=== PATIENT | female | born 1980 | race African-American/Black ===

== ENCOUNTER 2019-11-30 10:08 | Emergency (ER) | payer OTHER, SELFPAY ==
--- NOTE | 2019-11-30 10:21 | ED.DENTAL ---
HPI - Dental/Oral General Chief complaint: Dental/Oral Stated complaint: Tooth Ache Time Seen by Provider: 11/30/19 10:22 Source: patient and RN notes reviewed Mode of arrival: ambulatory Limitations: no limitations History of Present Illness HPI Narrative: 39 year old female who presents to [facility] with complaints of dental pain to the lower right molar#30 for about 6 week duration. Patient states she is awaiting up coming dental appointment at [facility] next week. Patient reports that she has been using ora-gel, mouthwash and also peroxide/water rinses and salt water. Patient states that she has been taking Tylenol and Ibuprofen alternating and is on prescription pain medication for her arthritis and fibromyalgia.Patient states that she has been applying ice to her face at intervals, denies any difficulty with her breathing or any difficulty with swallowing, no Vasquez angina noted. MD Complaint: tooth pain Location: Tooth # (30) Onset (ago): week(s) (6) Duration: constant Severity: severe Severity scale (1-10): 8 Relieving factors: NSAIDs and prescription analgesics Exacerbating factors: chewing and cold Context: history of dental caries Associated symptoms: gum swelling and other (dental pain) Treatment prior to arrival: topical analgesic and oral analgesic Related Data Home Medications Medication Instructions Recorded Confirmed atorvastatin 40 mg DAILY 11/30/19 11/30/19 dulaglutide [Trulicity] 0.75 mg SUBCUT WEEKLY 11/30/19 11/30/19 glipizide 10 mg PO DAILY 11/30/19 11/30/19 insulin glargine [Lantus Solostar 66 unit SUBCUT HS 11/30/19 11/30/19 U-100 Insulin] insulin lispro [Humalog KwikPen 6 unit SUBCUT TIDWMEAL 11/30/19 11/30/19 Insulin] metoprolol succinate 100 mg PO DAILY 11/30/19 11/30/19 omeprazole 20 mg DAILY 11/30/19 11/30/19 oxycodone-acetaminophen 1 tablet Q6-8H 11/30/19 11/30/19 promethazine 25 mg Q4-6H PRN 11/30/19 11/30/19 Allergies Allergy/AdvReac Type Severity Reaction Status Date / Time azithromycin Allergy Mild Hives Verified 11/30/19 11:45 codeine Allergy Mild Swelling Verified 11/30/19 11:45 of Lip/Tongue/Throat levofloxacin Allergy Mild rash/itchin Unverified 05/12/18 15:48 g HYDROCODONE BIT Allergy Mild Hives Uncoded 11/30/19 11:45 HYDROMORPHONE HCL Allergy Mild Hives Uncoded 11/30/19 11:45 MEPERIDINE HCL Allergy Mild Hives Uncoded 11/30/19 11:45 Review of Systems Review of Systems: Narrative: CONSTITUTIONAL: Denies fever, chills, or sweats. EYES: Denies visual changes, redness, or discharge. ENT: Denies rhinorrhea, congestion, sore throat, or otalgia, positive for dental pain to her #30 tooth, denies any difficulty with her swallowing CARDIOVASCULAR: Denies chest pain, palpitations, or edema. RESPIRATORY: Denies cough or dyspnea denies any shortness of breath. GASTROINTESTINAL: Denies abdominal pain, nausea, vomiting, or diarrhea. GENITOURINARY: Denies dysuria or hematuria. SKIN: Denies rash or itching. MUSCULOSKELETAL: Denies back pain, joint pain, or myalgia. NEUROLOGIC: Denies headache, numbness, or weakness. PSYCHIATRIC: Denies anxiety or depression. All systems reviewed & are unremarkable except as noted in HPI and below PMFSH Past Medical History Medical History (Updated 12/01/19 @ 00:00 by Luis Antonio Daida) Anxiety and depression Arthritis Diabetes Fatty liver Fibromyalgia Hyperlipidemia Hypertension Left hand fracture Pneumonia Pyloric ulcer associated with Helicobacter pylori Surgical History Surgical History (Updated 11/30/19 @ 11:24 by Carmelita Ross NP) History of cervical spinal surgery Family History Family History (Updated 11/30/19 @ 11:23 by Carmelita Ross NP) Father Hypertension Mother Diabetes mellitus Social History Social History (Updated 11/30/19 @ 11:20 by Carmelita Ross NP) Smoking packs per day: 0.5 Smoking cigarettes per day: 10.0 Years smoked: 20 Smoking pack-years: 10.00 Substance use t
[2019-11-30 10:25] VITALS: BP 136/84; PULSE 88; RESP 16; TEMP 36.4; O2SAT 100
== END 2019-11-30 10:54 | disposition home or self-care (01) ==
PROVIDERS: Emergency Provider Registered Nurse; PCP Family Medicine
DX: K02.9 Dental caries, unspecified (principal); K08.89 Other specified disorders of teeth and supporting structures; F17.210 Nicotine dependence, cigarettes, uncomplicated; M19.90 Unspecified osteoarthritis, unspecified site; E11.9 Type 2 diabetes mellitus without complications; M79.7 Fibromyalgia; E78.5 Hyperlipidemia, unspecified; I10 Essential (primary) hypertension
CPT/HCPCS: 99213; G0463

== ENCOUNTER 2020-09-20 16:01 | Emergency (ER) | payer OTHER, SELFPAY ==
--- NOTE | ~2020-09-20 | XR_ITS ---
EXAMINATION: XR chest 1V portable EXAM DATE: 09/20/2020 18:38 INDICATION: Coughing, chest burning x 2 days. No other hx of heart/lung. TECHNIQUE: Portable AP frontal chest x-ray was obtained. There is no prior study for comparison. 12/2017 FINDINGS: The lungs are clear. There are no pleural effusions. The cardiomediastinal silhouette is within normal limits. There is no pneumothorax suspected. The bones and soft tissues are unremarkab le. IMPRESSION: No acute cardiopulmonary findings. Reviewed, dictated and finalized at location A.
--- NOTE | ~2020-09-20 | CT_ITS ---
EXAMINATION: CT abdomen pelvis w con EXAM DATE: 09/20/2020 19:10 INDICATION: Mid abdominal pain . TECHNIQUE: Spiral CT of the abdomen and pelvis was performed following intravenous injection of 100 m L Omnipaque 350. Axial, coronal and sagittal images of the abdomen and pelvis were reviewed. The do se-length product (DLP) for this examination was 374.26 mGy-cm. The exposure was tailored according to patient size (auto mA exposure control), and iterative reconstruction (ASIR) was used as additiona l dose reduction technique. Comparison is made to prior examination from 01/31/2017. FINDINGS: Small amount of faint right basilar groundglass airspace disease, nonspecific pneumonitis b ut given prevalence of COVID 19, recommend testing. This would certainly be below threshold for detec tion on x-ray. The liver, spleen, adrenal glands and pancreas are unremarkable. Gallbladder is unrem arkable. No biliary obstruction. Portal and splenic veins are patent. Kidneys enhance symmetricall y. There is no hydronephrosis. The uterus and ovaries are unremarkable, no adnexal mass. The blad kyra is unremarkable. There is no retroperitoneal or pelvic lymphadenopathy. The appendix is normal. The stomach and small bowel are unremarkable. There is expected amount of c olonic stool. No free intraperitoneal gas. The heart is normal in size. There are no pericardial or pleural effusions. The lung bases are unremarkable. There are no osteoblastic or osteolytic les ions identified. IMPRESSION: 1. Small amount right basilar pneumonitis; recommend testing for COVID. 2. No acute intra-abdominal findings. Reviewed, dictated and finalized at location A.
--- NOTE | 2020-09-20 16:03 | ECG_ITS ---
Measurements Intervals [place] Rate: 92 P: 64 VA: 146 QRS: 28 QRSD: 77 T: 61 QT: 360 QTc: 447 Interpretive Statements SINUS RHYTHM POSSIBLE LEFT ATRIAL ENLARGEMENT BORDERLINE ECG Electronically Signed On 09-20-2020 16:27:32 CDT by Ronald Little D.O.
[2020-09-20 16:36] LABS: Basophils Percent Auto 0.3 % (0.2-1.2); Eosinophils Percent Auto 0.2 % (0-4.4); Hematocrit 42.7 % (37.0-47.0); Immature Granulocyte Absolute 0.02 K/mm3 (0.00-0.031); Immature Granulocyte Percent A 0.3 % (0-0.5); Lymphocytes Percent Auto 7.5 % (18.3-44.2); Mean Corpuscular HGB Conc 32.8 g/dl (32-36); Mean Corpuscular Hemoglobin 27.1 pg (26-34); Mean Corpuscular Volume 82.6 fl (80-100); Mean Platelet Volume 11.3 fl (7.4-10.4); Monocytes Absolute Auto 0.2 K/mm3 (0.1-0.6); Monocytes Percent Auto 3.3 % (2.6-8.5); Neutrophils Absolute Auto 5.9 K/mm3 (1.3-6.7); Neutrophils Percent Auto 88.4 % (45.5-73.1); Platelet Count Result 230 k/mm3 (150-375); Red Blood Count 5.17 M/mm3 (4.2-5.4); Red Cell Distribution Width 13.2 % (11.5-14.5); White Blood Count 6.7 K/mm3 (4.5-10.0)
[2020-09-20 16:47] LABS: Alanine Aminotransferase 37 U/L (4-35); Albumin Level 4.8 g/dL (3.5-5.1); Alkaline Phosphatase 79 U/L (38-126); Anion Gap 12 mmol/L (8-16); Aspartate Amino Transferase 31 U/L (14-36); Bilirubin,Total 0.7 mg/dL (0.2-1.3); Blood Urea Nitrogen 6 mg/dL (7-17); Calcium 9.8 mg/dL (8.4-10.2); Carbon Dioxide 22 mmol/L (22-30); Chloride 103 mmol/L (98-107); Estimated Glomerular Filt Rate > 60; Glucose 162 mg/dL (65-110); Lipase 83 U/L (23-300); Potassium 3.5 mmol/L (3.4-5.0); Sodium 137 mmol/L (137-145)
[2020-09-20 17:31] VITALS: BP 176/89; PULSE 77; RESP 16; O2SAT 100
--- NOTE | 2020-09-20 17:38 | ED.GENADULT ---
HPI - General Adult General Chief complaint: Nausea/Vomiting/Diarrhea Stated complaint: N/V Time Seen by Provider: 09/20/20 17:37 Source: patient and RN notes reviewed Limitations: no limitations History of Present Illness HPI narrative: Patient is 40 years old -[place]i female presents with cough and of yellow sputum started yesterday, today patient started having vomiting at least 7 episodes so far associated with nausea, fever and chills. Patient lives alone, denies exposure to anybody having similar symptoms. 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 Patient is fully vaccinated for COVID-19. History of hypertension, diabetes, smoking. Patient denies drinking alcohol or marijuana. Related Data Home Medications Medication Instructions Recorded Confirmed atorvastatin 40 mg DAILY 11/30/19 11/30/19 dulaglutide [Trulicity] 0.75 mg SUBCUT WEEKLY 11/30/19 11/30/19 glipizide 10 mg PO DAILY 11/30/19 11/30/19 insulin glargine [Lantus Solostar 66 unit SUBCUT HS 11/30/19 11/30/19 U-100 Insulin] insulin lispro [Humalog KwikPen 6 unit SUBCUT TIDWMEAL 11/30/19 11/30/19 Insulin] metoprolol succinate 100 mg PO DAILY 11/30/19 11/30/19 omeprazole 20 mg DAILY 11/30/19 11/30/19 oxycodone-acetaminophen 1 tablet Q6-8H 11/30/19 11/30/19 promethazine 25 mg Q4-6H PRN 11/30/19 11/30/19 Allergies Allergy/AdvReac Type Severity Reaction Status Date / Time azithromycin Allergy Mild Hives Verified 09/20/20 18:01 codeine Allergy Mild Swelling Verified 09/20/20 18:01 of Lip/Tongue/Throat levofloxacin Allergy Mild rash/itchin Verified 09/20/20 18:01 g HYDROCODONE BIT Allergy Mild Hives Uncoded 11/30/19 11:45 HYDROMORPHONE HCL Allergy Mild Hives Uncoded 11/30/19 11:45 MEPERIDINE HCL Allergy Mild Hives Uncoded 11/30/19 11:45 Review of Systems Review of Systems: Narrative: CONSTITUTIONAL: Denies fever, chills, or sweats. EYES: Denies visual changes, redness, or discharge. ENT: Denies rhinorrhea, congestion, sore throat, or otalgia. CARDIOVASCULAR: Denies chest pain, palpitations, or edema. RESPIRATORY: Denies cough or dyspnea. GASTROINTESTINAL: Denies abdominal pain, nausea, vomiting, or diarrhea. GENITOURINARY: Denies dysuria or hematuria. SKIN: Denies rash or itching. MUSCULOSKELETAL: Denies back pain, joint pain, or myalgia. NEUROLOGIC: Denies headache, numbness, or weakness. PSYCHIATRIC: Denies anxiety or depression. PMFSH Past Medical History Medical History Anxiety and depression Arthritis Diabetes Fatty liver Fibromyalgia Hyperlipidemia Hypertension Left hand fracture Pneumonia Pyloric ulcer associated with Helicobacter pylori Surgical History Surgical History History of cervical spinal surgery Family History Family History Father Hypertension Mother Diabetes mellitus Social History Social History Smoking packs per day: 0.5 Smoking cigarettes per day: 10.0 Years smoked: 20 Smoking pack-years: 10.00 Substance use type: opiates and prescription drug Gender identity (if verbalized by the patient): Female Exam Narrative: Exam Narrative: General appearance: Well-developed, well-nourished Skin: Normal color Head: Normocephalic, nontraumatic Eyes: Clear conjunctiva ENT: Oropharynx normal, ears normal, nose normal Neck: Supple, nontender Chest and respiratory: Airway patent, no respiratory distress, no accessory muscle use Heart: Regular rate/rhythm Abdomen: Soft, diffuse mid abdominal tenderness, no organomegaly, quiet bowel sounds Vascular: Normal peripheral pulses, normal capillary refill. Musculoskeletal: Normal range of motion, nontender back Neurologic: Alert and oriented ?3, CANVAS BASTER JUMPBASTING is normal as tested, no gross motor deficit
[2020-09-20] MEDS: MORPHINE SULFATE (*CRX) 4 MG/ML INJ IV PUSH (18:07)
[2020-09-20] MEDS: ONDANSETRON INJ 4 MG/2 ML VIAL IV PUSH ×2 (18:07→21:17)
[2020-09-20] MEDS: SODIUM CHLORIDE 0.9% IV 1,000 ML 999 ML IV CONT (18:08)
[2020-09-20 19:11] LABS: Add Urine Microscopic? YES; Appearance Urine Clear (Clear); Bilirubin Urine Negative (Negative); Blood Urine Negative (Negative); Color Urine Yellow (Yellow); Glucose Urine UA 1+ mg/dL (Negative); Ketones Urine Trace mg/dL (Negative); Leukocyte Esterase Ur Negative LEU/UL (Negative); Mucus Urine Heavy /lpf; Nitrate Urine Negative (Negative); Protein Urine 2+ mg/dL (Negative); RBC Urine 0-2 /hpf (0-2); Specific Grav Ur 1.012 (1.001-1.035); Squamous Epithelial Cell Urine Few /hpf (Few); Urobilinogen Urine Negative mg/dL (<2.0); WBC Urine 0-3 /hpf
--- NOTE | 2020-09-20 19:14 | PC.NURSE ---
assumed care of pt a this time.
[2020-09-20 20:25] VITALS: BP 178/88; PULSE 78; RESP 18; O2SAT 100
[2020-09-20 20:52] LABS: Alveolar/Arterial O2 Gradient 31.3 mmHg; Base Excess ABG 1.4 mEq/l (+/-2.0); Device ROOM AIR; Fractional Inspired Oxygen 21 %; HCO3 ABG 24.4 mEq/l (22.0-26.0); Oxygen Content ABG 20.1 %vol (16.0-22.0); Oxygen Saturation ABG 96.4 % (95.0-100.0); PCO2 ABG 33.7 mmHg (35.0-45.0); PO2 ABG 78.1 mmHg (80.0-100.0); PO2 FiO2 Ratio Arterial Blood 3.72 %; Site Drawn RIGHT BRACHIAL; pH ABG 7.477 (7.350-7.450)
[2020-09-20 21:36] VITALS: BP 175/97; PULSE 80; RESP 18; O2SAT 100
[2020-09-20] MEDS: AMOXICILLIN/CLAVULANATE K 875-125 MG TAB 1 TABLET PO (21:36)
[2020-09-22 15:38] LABS: SARS-CoV-2 RNA PCR Negative
== END 2020-09-20 21:38 | disposition home or self-care (01) ==
PROVIDERS: Emergency Provider Emergency Medicine; PCP Family Medicine
DX: J18.9 Pneumonia, unspecified organism (principal); R11.2 Nausea with vomiting, unspecified; Z20.822 Contact with and (suspected) exposure to COVID-19; M19.90 Unspecified osteoarthritis, unspecified site; E11.9 Type 2 diabetes mellitus without complications; M79.7 Fibromyalgia; E78.5 Hyperlipidemia, unspecified; I10 Essential (primary) hypertension; Z87.01 Personal history of pneumonia (recurrent); F17.210 Nicotine dependence, cigarettes, uncomplicated; Z79.4 Long term (current) use of insulin; Z79.899 Other long term (current) drug therapy
CPT/HCPCS: 36415; 36600; 71045; 74177; 80053; 81001; 81025; 82805; 83690; 85025; 93005; 96361; 96374; 96375; 96376; 99284; A9270; C9803; J2270; J2405; J7030; Q9967; U0003; U0005

== ENCOUNTER 2020-09-23 17:25 | Inpatient (IN) | payer BC, SELFPAY ==
[2020-09-23] VITALS (11 sets, daily range): BP systolic 95–138; BP diastolic 62–84; PULSE 90–118; RESP 17–22; TEMP 36.4–37.1; O2SAT 100; BMI 26.2
--- NOTE | ~2020-09-23 | CT_ITS ---
EXAMINATION: CTA chest PE protocol DATE: 09/23/2020 19:20 INDICATION: Shortness of breath TECHNIQUE: Computed tomography angiography (CTA) of the chest was performed with 100 mL Omnipaque-350 intravenous contrast timed to evaluate the pulmonary arteries. Coronal maximum intensity projection 3D-reconstructions were created by the technologist. The dose-length product (DLP) was 315.37 mGy-cm. Automated exposure control and iterative reconstruction technique were employed. COMPARISON: None. FINDINGS: The pulmonary arteries are well-opacified. No pulmonary embolism is identified. There is mi ld atelectasis. No pleural effusion or pneumothorax is identified. No pathologically enlarged thoraci c lymph nodes are identified. The heart size is normal. There is mild thoracic spondylosis. IMPRESSION: 1. No pulmonary embolism or acute cardiopulmonary abnormality. Reviewed, dictated and finalized at location A.
--- NOTE | ~2020-09-23 | XR_ITS ---
EXAMINATION: XR chest 1V portable INDICATION: Cough and shortness of breath TECHNIQUE: Portable AP chest at 1743 hours COMPARISON: 09/20/2020 FINDINGS: Patchy opacities have developed in the lung bases. There is no pleural effusion or pneumoth orax. The cardiomediastinal silhouette is normal. The visualized osseous structures are unremarkable. IMPRESSION: 1. Bibasilar airspace opacities, consistent with atelectasis versus pneumonia. Reviewed, dictated and finalized at location A.
--- NOTE | ~2020-09-23 | US_ITS ---
EXAMINATION: US abdomen limited EXAM DATE: 09/25/2020 14:34 INDICATION: Elevated liver function tests. TECHNIQUE: Multiple grayscale and Doppler images of the abdomen right upper quadrant were obtained (b y a technologist who performed the scan) and subsequently reviewed. There is no prior study for ramirez thomas. FINDINGS: The pancreatic head and body are normal in appearance. The pancreatic tail is not visualized. Mildl y echogenic liver parenchyma, hepatic steatosis. There are no focal liver lesions identified. Ther e is no evidence of intrahepatic biliary duct dilation. Portal venous flow was seen in the hepatoped al, normal direction and has normal Doppler waveform. No right-sided hydronephrosis. Common bile duct measures 5 mm, which is normal. The gallbladder wall is normal in thickness, with ex pected amount of distention. No sonographic evidence of pericholecystic fluid. There is no cholelit hiases. Technologist performing exam reports patient did not demonstrate sonographic Carmichael's sign. Please note that this sign is less reliable in patients who have received pain medication. IMPRESSION: 1. Mild hepatic steatosis. Reviewed, dictated and finalized at location B. IMPRESSION: 1. Mild hepatic steatosis.
--- NOTE | 2020-09-23 17:29 | ECG_ITS ---
Measurements Intervals [place] Rate: 111 P: 82 AK: 120 QRS: 74 QRSD: 86 T: 47 QT: 357 QTc: 487 Interpretive Statements SINUS TACHYCARDIA RIGHT ATRIAL ENLARGEMENT BASELINE ARTIFACT- I, II, III, AVR, AVL, AVF, V1-V6 ABNORMAL ECG Electronically Signed On 09-24-2020 13:39:58 CDT by Ronald Little D.O.
--- NOTE | 2020-09-23 17:52 | ED.SOB ---
HPI - SOB/Dyspnea General Chief Complaint: Shortness of Breath/Dyspnea Stated Complaint: DIFFICULTY BREATHING Time Seen by Provider: 09/23/20 17:47 Source: RN notes reviewed History of Present Illness HPI Narrative: Patient presents to emergency department from home via EMS for shortness of breath. Patient states she was seen here 3 days ago and diagnosed with pneumonia started on antibiotics at that time with a Covid test was not of the results she states she is have aggressive shortness of breath at that time as well as a cough this been nonproductive she notes a subjective fever as well as nausea she denies any chest pain abdominal pain or diarrhea. States that she continues to have nausea vomiting is unable to keep anything down for the past 3 days even with antiemetics Related Data Home Medications Medication Instructions Recorded Confirmed atorvastatin 40 mg DAILY 11/30/19 11/30/19 dulaglutide [Trulicity] 0.75 mg SUBCUT WEEKLY 11/30/19 11/30/19 glipizide 10 mg PO DAILY 11/30/19 11/30/19 insulin glargine [Lantus Solostar 66 unit SUBCUT HS 11/30/19 11/30/19 U-100 Insulin] insulin lispro [Humalog KwikPen 6 unit SUBCUT TIDWMEAL 11/30/19 11/30/19 Insulin] metoprolol succinate 100 mg PO DAILY 11/30/19 11/30/19 omeprazole 20 mg DAILY 11/30/19 11/30/19 oxycodone-acetaminophen 1 tablet Q6-8H 11/30/19 11/30/19 promethazine 25 mg Q4-6H PRN 11/30/19 11/30/19 Allergies Allergy/AdvReac Type Severity Reaction Status Date / Time azithromycin Allergy Mild Hives Verified 09/20/20 18:01 codeine Allergy Mild Swelling Verified 09/20/20 18:01 of Lip/Tongue/Throat levofloxacin Allergy Mild rash/itchin Verified 09/20/20 18:01 g HYDROCODONE BIT Allergy Mild Hives Uncoded 11/30/19 11:45 HYDROMORPHONE HCL Allergy Mild Hives Uncoded 11/30/19 11:45 MEPERIDINE HCL Allergy Mild Hives Uncoded 11/30/19 11:45 Review of Systems Review of Systems: Gen.: Reports subjective fever Eyes: Denies eye pain or visual change ENT: Denies congestion Respiratory: See HPI CV: Denies chest pain or palpitations GI: Denies abdominal pain. Reports nausea vomiting Musculoskeletal: Denies back pain or muscle pain Neuro: Denies numbness, tingling, weakness or focal weakness Skin: Denies rash Except as documented, all other systems reviewed and negative [facility] Past Medical History Medical History Anxiety and depression Arthritis Diabetes Fatty liver Fibromyalgia Hyperlipidemia Hypertension Left hand fracture Pneumonia Pyloric ulcer associated with Helicobacter pylori Surgical History Surgical History History of cervical spinal surgery Family History Family History Father Hypertension Mother Diabetes mellitus Social History Social History Smoking packs per day: 0.5 Smoking cigarettes per day: 10.0 Years smoked: 20 Smoking pack-years: 10.00 Substance use type: opiates and prescription drug Gender identity (if verbalized by the patient): Female Exam Narrative: APPEARANCE: Mild respiratory distress, nontoxic, resting in bed HEENT: Normocephalic, atraumatic OMM RESPIRATORY: Mild respiratory stress wheezing thought the bilateral lung rosenbaum with decreased breath sounds in the bases CARDIOVASCULAR: Tachycardic and regular without murmurs rubs or gallops. ABDOMINAL: Soft, nontender, nondistended, no rebound or guarding MUSCULOSKELETAl: Moves all extremities. No clubbing, cyanosis or edema. Bilateral calves soft and nontender NEURO: Awake and alert. Following commands, speech normal, no focal deficits SKIN:: Warm, dry. Normal Color PSYCHIATRIC: Normal affect/mood, Course Course Emergency Course: Reviewed previous records reviewed CT scan as well as Covid swab that was resulted as negative Patient continues t
[2020-09-23] MEDS: IPRATROPIUM BR 0.02% INH SOLN 0.5 MG/2.5 ML VIAL INHALATION ×2 (17:59→20:36)
[2020-09-23] MEDS: ALBUTEROL SULFATE NEB 2.5 MG/0.5 ML INH 5 MG INHALATION ×2 (17:59→20:36)
[2020-09-23] MEDS: methylPREDNISolone SOD SUCC 125 MG VIAL IV PUSH (18:17)
[2020-09-23] MEDS: SODIUM CHLORIDE 0.9% IV 1,000 ML 999 ML IV CONT ×2 (18:18→19:02)
[2020-09-23 18:33] LABS: Basophils Percent Auto 0.7 % (0.2-1.2); Eosinophils Absolute Auto 0.1 K/mm3 (0-0.3); Hematocrit 49.9 % (37.0-47.0); Hemoglobin 16.3 g/dL (12.0-15.0); Immature Granulocyte Absolute 0.01 K/mm3 (0.00-0.031); Immature Granulocyte Percent A 0.2 % (0-0.5); Lymphocytes Absolute Auto 2.53 K/mm3 (0.9-3.2); Lymphocytes Percent Auto 56.9 % (18.3-44.2); Mean Corpuscular HGB Conc 32.7 g/dl (32-36); Mean Corpuscular Hemoglobin 26.9 pg (26-34); Mean Corpuscular Volume 82.2 fl (80-100); Mean Platelet Volume 11.3 fl (7.4-10.4); Monocytes Absolute Auto 0.3 K/mm3 (0.1-0.6); Neutrophils Absolute Auto 1.5 K/mm3 (1.3-6.7); Neutrophils Percent Auto 33.2 % (45.5-73.1); Platelet Count Result 277 k/mm3 (150-375); Red Blood Count 6.07 M/mm3 (4.2-5.4); Red Cell Distribution Width 13.5 % (11.5-14.5); White Blood Count 4.5 K/mm3 (4.5-10.0)
[2020-09-23 18:43] LABS: INR 0.9; Prothrombin Time 12.2 Seconds (11.1-14.7)
[2020-09-23 18:44] LABS: Lactic Acid Reflex 3.6 mmol/L (0.7-2.1)
[2020-09-23 18:44] LABS: Partial Thromboplastin Time 26.8 SECONDS (22.3-36.8)
[2020-09-23 18:45] LABS: Alanine Aminotransferase 96 U/L (4-35); Albumin Level 4.7 g/dL (3.5-5.1); Alkaline Phosphatase 82 U/L (38-126); Anion Gap 16 mmol/L (8-16); Aspartate Amino Transferase 61 U/L (14-36); Bilirubin,Total 1.1 mg/dL (0.2-1.3); Blood Urea Nitrogen 28 mg/dL (7-17); Calcium 10.3 mg/dL (8.4-10.2); Carbon Dioxide 26 mmol/L (22-30); Chloride 93 mmol/L (98-107); Estimated CRCL calculation 43 ml/min; Estimated Glomerular Filt Rate 46; Glucose 216 mg/dL (65-110); Lipase 206 U/L (23-300); Potassium 3.1 mmol/L (3.4-5.0); Sodium 135 mmol/L (137-145)
[2020-09-23] MEDS: POTASSIUM CHLORIDE 20 MEQ TABLET 40 MEQ PO (19:02)
--- NOTE | 2020-09-23 19:25 | PC.NURSE ---
Assumed care of pt at this time. Pt alert and upright on stretcher, lights dimmed.
[2020-09-23 21:32] LABS: Reflex Lactic Acid Yes or No Add Lactic
[2020-09-23] MEDS: ONDANSETRON INJ 4 MG/2 ML VIAL IV PUSH (21:41)
[2020-09-23 22:19] LABS: Lactic Acid 1.5 mmol/L (0.7-2.1)
[2020-09-24] VITALS (7 sets, daily range): BP systolic 118–130; BP diastolic 70–77; PULSE 74–95; RESP 16–20; TEMP 36.3–36.6; O2SAT 96–100; BMI 26.2
[2020-09-24] MEDS: SODIUM CHLORIDE 0.9% IV 1,000 ML 125 ML IV CONT ×2 (00:45→09:37)
[2020-09-24] MEDS: ONDANSETRON INJ 4 MG/2 ML VIAL IV PUSH ×3 (00:45→18:13)
[2020-09-24] MEDS: methylPREDNISolone SOD SUCC 125 MG VIAL 60 MG IV PUSH ×2 (01:56→05:29)
--- NOTE | 2020-09-24 02:52 | PM.IMHP ---
H&P: HPI History of Present Illness Date/Time: 09/24/20 02:52 Chief Complaint: NAUSEA AND VOMITING Narrative: THIS IS A 40-YEAR-OLD FEMALE WITH PAST MEDICAL HISTORY SIGNIFICANT FOR TYPE 2 DIABETES MELLITUS INSULIN DEPENDENT, HYPERTENSION. PATIENT PRESENTED TO THE EMERGENCY ROOM DUE TO NAUSEA AND VOMITING FOR THE LAST 3 DAYS OR SO SHE HAD BEEN IN TO THE EMERGENCY ROOM 2 DAYS AGO SHE HAD A CT OF ABDOMEN AND PELVIS WHICH PRETTY MUCH WAS UNREMARKABLE SHE WAS TREATED FOR NAUSEA VOMITING AND DISCHARGED HOME ON P.O. AMOXICILLIN AND ANTI EMETICS SHE RETURNED TODAY DUE TO INTRACTABLE NAUSEA AND VOMITING AND STARTED WHEEZING WELL, SHE HAS HAD SOME DRY COUGH BUT DENIES ANY SHORTNESS OF BREATH. PATIENT SMOKES HALF PACK TO 1 PACK OF CIGARETTES A DAY FOR OVER 20 YEARS S STATES THAT SHE QUIT SMOKING EVER SINCE SHE BECAME ILL AND IS BEING NOW ROUGHLY 5 DAYS SINCE SHE LAST SMOKED. PRELIMINARY WORKUP WAS ESSENTIALLY NONREVEALING A CTA HEAD DID NOT SHOW ACUTE PULMONARY EMBOLISM A BMP WAS SIGNIFICANT FOR SLIGHT ELEVATION OF CREATININE AND BUN. Review of Systems Review of Systems: NAUSEA VOMITING AND WHEEZING Constitutional: Constitutional: Denies chills, Denies fatigue, Denies fever(s), Denies night sweats and Denies weakness Eyes: Eyes: Denies change in vision ENT: Denies dysphagia, Denies nasal congestion, Denies nasal discharge, Denies nasal obstruction and Denies odynophagia Cardiovascular: Cardiovascular: Denies chest pain, Denies chest pain at rest, Denies chest pain with activity, Denies edema, Denies irregular heart rhythm, Denies lightheadedness, Denies radiating jaw, neck or arm pain, Denies palpitations, Denies dyspnea and Denies orthopnea Respiratory: Respiratory: Reports cough, Denies dyspnea and Reports wheezing Gastrointestinal: Gastrointestinal: Denies abdominal pain, Denies dyspepsia, Denies heartburn, Reports nausea and Reports vomiting Genitourinary: Genitourinary: Reports no additional female genitourinary complaints Musculoskeletal: Musculoskeletal: Reports no additional musculoskeletal complaints Integumentary/Breasts: Skin/Breast: Reports system reviewed and no additional complaints, except as docu Neurologic: Reports system reviewed and no additional complaints, except as documented Psychiatric: Psychiatric: Reports no additional psychiatric complaints Endocrine: Endocrine: Reports no additional endocrine complaints Hematologic/Lymphatic: Hematologic/Lymphatic: Reports no additional hematologic/lymphatic complaints Allergic/Immunologic: Allergic/Immunologic: Reports no additional allergic/immunologic complaints PMFSH Past Medical History Medical History Anxiety and depression Arthritis Diabetes Fatty liver Fibromyalgia Hyperlipidemia Hypertension Left hand fracture Pneumonia Pyloric ulcer associated with Helicobacter pylori Surgical History Surgical History History of cervical spinal surgery Family History Family History Father Hypertension Mother Diabetes mellitus Social History Social History Smoking status: Current every day smoker Tobacco type: cigars Additional smoking assessment comments: Black and Mild cigars. Alcohol intake: never Substance use type: opiates and prescription drug Gender identity (if verbalized by the patient): Female Spiritual care concerns: No Meds Home Medications and Allergies Home Medications Medication Instructions Recorded Confirmed Type dulaglutide [Trulicity] 0.75 mg SUBCUT WEEKLY 11/30/19 09/23/20 History insulin glargine [Lantus Solostar 66 unit SUBCUT HS 11/30/19 09/23/20 History U-100 Insulin] insulin lispro [Humalog KwikPen 6 unit SUBCUT TIDWMEAL 11/30/19 09/23/20 History Insulin] metoprolol succinate 200 mg PO DAILY
--- NOTE | 2020-09-24 06:32 | ADMGEN ---
This patient, Marley Han, was admitted to [facility] Surg Room 313-01. Patient/family oriented to hospital policies and general routines including ID bracelet, bed and alarms, visiting hours, pain management, procedures, bathroom and other care routines, personal items, smoking policy, room service/diet, and visiting hours. Information on how to activate the Rapid Response Team has been discussed. Patient/Family are encouraged to report perceived risks to care and to ask questions if they do not understand what they are told or what they should do. Discussed hospital policy, testing, medications, and call light use. Patient stated that she hadn't had a BM for 6 days though she had a moderate sized dark brown stool during her admission process. She continues a clear liquid diet at this time. She demonstrated a steady though slow and slightly weakened gait.
[2020-09-24 06:34] LABS: Basophils Percent Auto 0.2 % (0.2-1.2); Hematocrit 39.8 % (37.0-47.0); Hemoglobin 12.8 g/dL (12.0-15.0); Immature Granulocyte Absolute 0.02 K/mm3 (0.00-0.031); Immature Granulocyte Percent A 0.4 % (0-0.5); Lymphocytes Absolute Auto 0.76 K/mm3 (0.9-3.2); Lymphocytes Percent Auto 14.9 % (18.3-44.2); Mean Corpuscular HGB Conc 32.2 g/dl (32-36); Mean Corpuscular Hemoglobin 26.7 pg (26-34); Mean Corpuscular Volume 82.9 fl (80-100); Monocytes Absolute Auto 0.1 K/mm3 (0.1-0.6); Monocytes Percent Auto 1.6 % (2.6-8.5); Neutrophils Absolute Auto 4.2 K/mm3 (1.3-6.7); Neutrophils Percent Auto 82.9 % (45.5-73.1); Platelet Count Result 211 k/mm3 (150-375); Red Cell Distribution Width 13.2 % (11.5-14.5); White Blood Count 5.1 K/mm3 (4.5-10.0)
[2020-09-24 06:45] LABS: Alanine Aminotransferase 74 U/L (4-35); Albumin Level 3.6 g/dL (3.5-5.1); Alkaline Phosphatase 60 U/L (38-126); Anion Gap 9 mmol/L (8-16); Aspartate Amino Transferase 42 U/L (14-36); Bilirubin,Total 0.7 mg/dL (0.2-1.3); Blood Urea Nitrogen 20 mg/dL (7-17); Carbon Dioxide 23 mmol/L (22-30); Chloride 103 mmol/L (98-107); Estimated CRCL calculation 78 ml/min; Estimated Glomerular Filt Rate > 60; Glucose 260 mg/dL (65-110); Potassium 4.6 mmol/L (3.4-5.0); Sodium 135 mmol/L (137-145)
[2020-09-24] MEDS: IPRATROPIUM BR 0.02% INH SOLN 0.5 MG/2.5 ML VIAL INHALATION ×2 (07:56→14:24)
[2020-09-24] MEDS: ALBUTEROL SULFATE NEB 2.5 MG/0.5 ML INH 5 MG INHALATION ×2 (07:56→14:23)
[2020-09-24 08:09] LABS: Glucose Point of Care 245 mg/dl (65-105)
[2020-09-24] MEDS: INSULIN ASPART (*BKC) 100 UNITS/ML SUB-Q ×3 (09:34→18:17)
[2020-09-24] MEDS: AMOXICILLIN/CLAVULANATE K 875-125 MG TAB 1 TABLET PO ×2 (11:21→21:35)
[2020-09-24] MEDS: SACCHAROMYCES BOULARDII 250 MG CAPSULE PO ×2 (11:21→18:16)
[2020-09-24] MEDS: PANTOPRAZOLE 40 MG TABLET PO (11:22)
[2020-09-24] MEDS: METOPROLOL SUCCINATE EXT REL 100 MG TABCR 200 MG PO (11:22)
[2020-09-24] MEDS: DICYCLOMINE HCL 10 MG CAPSULE 20 MG PO ×3 (11:22→18:16)
[2020-09-24 11:38] LABS: Glucose Point of Care 272 mg/dl (65-105)
--- NOTE | 2020-09-24 13:00 | PM.IMPN ---
Progress Note: A&P Assessment and Plan (1) Dehydration: Code(s): E86.0 - Dehydration Status: Acute Assessment and Plan: patient presented to the emergency room with nausea, vomiting, for the last 3 days. Patient's labs showed signs of dehydration and she was given IV fluid with improvement of her symptoms, creatinine. she is still having some nausea and vomiting today. Most of her vomiting comes after a coughing fit, more posttussive emesis. Continue with light IV fluid hydration until she is eating and drinking without any issues. (2) COPD exacerbation: Code(s): J44.1 - Chronic obstructive pulmonary disease with (acute) exacerbation Status: Acute Assessment and Plan: Patient has some wheezing on examination. She is on DuoNeb treatments every 6 hours, she was on IV Solu-Medrol but I decreased this to oral prednisone since her symptoms are improving. I will give antitussives with Tessalon Perles t.i.d. and p.r.n. Robitussin. She was started on Augmentin when she came to the ER on 09/20/2020 and it was continued during his hospitalization Continue monitoring respiratory status. (3) Nausea and vomiting: Code(s): R11.2 - Nausea with vomiting, unspecified Status: Acute Assessment and Plan: antiemetics p.r.n.. Antitussives PRN. (4) Acute renal insufficiency: Code(s): N28.9 - Disorder of kidney and ureter, unspecified Status: Acute Assessment and Plan: Back to normal after IV fluid hydration. Most likely due to dehydration, vomiting. (5) Acute hypokalemia: Code(s): E87.6 - Hypokalemia Status: Acute Assessment and Plan: Back to baseline. (6) Tobacco dependence: Code(s): F17.200 - Nicotine dependence, unspecified, uncomplicated Status: Acute Assessment and Plan: Educated patient for 3 minutes to quit smoking. She does have plans to after discharge. P.r.n. nicotine patch. (7) Elevated LFTs: Code(s): R79.89 - Other specified abnormal findings of blood chemistry Status: Acute Assessment and Plan: Elevated LFTs. She had negative COVID swab on 09/20/2020. Will check an ultrasound of her right upper quadrant due to elevated LFTs in the morning. Will recheck labs in the morning, to include Hepatitis panel. Time Spent With Patient Time with patient: 25 - 35 minutes Subjective Date/time seen: 09/24/20 13:00 Interval history: Date of Service 09/24/20: The patient reports continuing to have a cough with post-tussive emesis which then causes her to become nauseous. she has not been able to eat too much today due to nausea and vomiting. She denies much fevers or chills, but reports sweats. Denies chest pain, SOB is improving but still having coughing, clear to dry. denies chest pain, leg swelling, calf pain or any other symptoms at this time. Review of Systems Review of Systems: All systems reviewed & are unremarkable except as noted in HPI and below Exam Narrative: General: 40-year-old woman laying flat on her right side in bed. Appears comfortable. In no acute distress. Skin: No jaundice or cyanosis. Good skin turgor. Neck: Full range of motion. Supple. Respiratory: Good airmovement today, no real wheezing noted. No rales or rhonchi. No bony chest wall tenderness. Cardiovascular: The heart has a regular rate and rhythm without murmur. Lower extremities: No lower extremity edema. Distal pulses are easily palpated. No calf tenderness to palpation. Gastrointestinal: Some TTP right mid and lower abdomen. No rebound or guarding.
--- NOTE | 2020-09-24 13:05 | PCNSR ---
On 09/24/20, the student, Sammie Parmar, provided care and [facility]. I have reviewed the student's documentation and agree with the findings.
[2020-09-24] MEDS: BENZONATATE 100 MG CAPSULE PO ×2 (13:11→18:15)
[2020-09-24 16:51] LABS: Glucose Point of Care 224 mg/dl (65-105)
[2020-09-24] MEDS: diazePAM (*CRX) 5 MG TABLET PO (21:36)
[2020-09-24] MEDS: INSULIN GLARGINE (*BKC) 100 UNITS/ML 20 UNITS SUB-Q (21:41)
[2020-09-24 21:47] LABS: Glucose Point of Care 259 mg/dl (65-105)
[2020-09-25] VITALS (12 sets, daily range): BP systolic 119–148; BP diastolic 68–83; PULSE 69–88; RESP 14–18; TEMP 36.3–36.6; O2SAT 99–100
[2020-09-25] MEDS: guaiFENesin/DEXTROMETHORPHAN 10 ML UDC 5 ML PO ×2 (02:13→13:37)
[2020-09-25] MEDS: oxyCODONE/ACETAMINOPHEN (*CRX) 5-325 MG TABLET 1 TABLET PO ×2 (02:18→13:34)
[2020-09-25 06:51] LABS: Alanine Aminotransferase 89 U/L (4-35); Albumin Level 3.2 g/dL (3.5-5.1); Alkaline Phosphatase 46 U/L (38-126); Anion Gap 6 mmol/L (8-16); Aspartate Amino Transferase 53 U/L (14-36); Bilirubin,Total 0.5 mg/dL (0.2-1.3); Blood Urea Nitrogen 16 mg/dL (7-17); CRP < 0.5 mg/dL (<1.0); Carbon Dioxide 25 mmol/L (22-30); Chloride 105 mmol/L (98-107); Estimated CRCL calculation 70 ml/min; Estimated Glomerular Filt Rate > 60; Glucose 148 mg/dL (65-110); Lactate Dehydrogenase 514 U/L (313-618); Potassium 3.7 mmol/L (3.4-5.0); Sodium 136 mmol/L (137-145)
[2020-09-25 07:02] LABS: Glucose Point of Care 156 mg/dl (65-105)
[2020-09-25] MEDS: ONDANSETRON INJ 4 MG/2 ML VIAL IV PUSH (08:10)
[2020-09-25] MEDS: AMOXICILLIN/CLAVULANATE K 875-125 MG TAB 1 TABLET PO ×2 (08:10→20:56)
[2020-09-25] MEDS: SACCHAROMYCES BOULARDII 250 MG CAPSULE PO ×2 (08:10→17:37)
[2020-09-25] MEDS: predniSONE 40 MG, predniSONE 10 MG 50 MG PO ×2 (08:11→13:29)
[2020-09-25] MEDS: BENZONATATE 100 MG CAPSULE PO ×2 (08:11→22:32)
[2020-09-25] MEDS: PANTOPRAZOLE 40 MG TABLET PO (08:11)
[2020-09-25] MEDS: DICYCLOMINE HCL 10 MG CAPSULE 20 MG PO ×3 (08:11→17:37)
[2020-09-25] MEDS: METOPROLOL SUCCINATE EXT REL 100 MG TABCR 200 MG PO (08:12)
[2020-09-25] MEDS: IPRATROPIUM BR 0.02% INH SOLN 0.5 MG/2.5 ML VIAL INHALATION ×4 (08:18→21:06)
[2020-09-25] MEDS: ALBUTEROL SULFATE NEB 2.5 MG/0.5 ML INH 5 MG INHALATION ×4 (08:18→21:06)
[2020-09-25 11:46] LABS: Glucose Point of Care 237 mg/dl (65-105)
[2020-09-25 11:53] LABS: Hepatitis B Surface Antigen Negative (Negative)
[2020-09-25 11:58] LABS: HAV RESULT Negative (Negative); Hepatitis B Core IgM Result Negative (Negative)
--- NOTE | 2020-09-25 12:05 | PM.IMPN ---
Progress Note: A&P Assessment and Plan (1) Dehydration: Code(s): E86.0 - Dehydration Status: Acute Assessment and Plan: patient presented to the emergency room with nausea, vomiting, for the last 3 days. Patient's labs showed signs of dehydration and she was given IV fluid with improvement of her symptoms, creatinine. Most of her vomiting comes after a coughing fit, more posttussive emesis. Her nausea is still present at times, no vomiting. We are controlling her cough today and she is able to tolerate food without vomiting. Well hydrated at this time. Will discontinue IV antibiotics. (2) COPD exacerbation: Code(s): J44.1 - Chronic obstructive pulmonary disease with (acute) exacerbation Status: Acute Assessment and Plan: Patient has some more wheezing on examination today. She is on DuoNeb treatments every 6 hours She was on IV Solu-Medrol but I switched to oral prednisone 50 mg daily (09/24/20). She is having some wheezing this afternoon, will give extra dose of PO Prednisone 50 mg one time. Reassess her respiratory status, wheezing tomorrow morning. Continue antitussives with Tessalon Perles t.i.d. and p.r.n. Robitussin. She was started on Augmentin when she came to the ER on 09/20/2020 and it was continued during his hospitalization, along with probiotics Continue monitoring respiratory status. (3) Nausea and vomiting: Code(s): R11.2 - Nausea with vomiting, unspecified Status: Acute Assessment and Plan: antiemetics p.r.n.. Antitussives PRN. (4) Acute renal insufficiency: Code(s): N28.9 - Disorder of kidney and ureter, unspecified Status: Acute Assessment and Plan: Back to normal after IV fluid hydration. Most likely due to dehydration, vomiting. (5) Acute hypokalemia: Code(s): E87.6 - Hypokalemia Status: Acute Assessment and Plan: Back to baseline. (6) Tobacco dependence: Code(s): F17.200 - Nicotine dependence, unspecified, uncomplicated Status: Acute Assessment and Plan: Educated patient for 3 minutes to quit smoking. She does have plans to after discharge. P.r.n. nicotine patch. (7) Elevated LFTs: Code(s): R79.89 - Other specified abnormal findings of blood chemistry Status: Acute Assessment and Plan: Elevated LFTs. She had negative COVID swab on 09/20/2020. LFT still elevated slightly COVID was negative 09/20/20, inflammatory markers are negative today Hepatitis panel is normal Pending ultrasound of her right upper quadrant due to elevated LFTs in the morning. Continue monitoring Time Spent With Patient Time with patient: 25 - 35 minutes Subjective Date/time seen: 09/25/20 12:05 Interval history: Date of Service 09/25/20: The patient is feeling better today. She has been able to eat and no vomiiting. She did require some antiemetics after lunch due to nausea. She reports slight increase in wheezing today as compared to yesterday, believe from switching IV Solu-medrol to PO Prednisone. She states she has been diagnosed with IBS in the past and she has issues with intermittent constipation and soft stools. While she has been here she has had softer stools and with eating the last few times it is if the food is going right through . she only reports 1 bowel movement yesterday, and 1 today. She does have chronic left-sided abdominal pain, but states now it has been more constant. She denies any chest pain, worsening SOB,, cough, vomiting, leg swelling, calf pain or any other symptoms at this time. Review
[2020-09-25 12:10] LABS: Hepatitis C Virus Antibody Negative (Negative)
[2020-09-25] MEDS: INSULIN ASPART (*BKC) 100 UNITS/ML SUB-Q ×2 (13:30→17:34)
[2020-09-25] MEDS: oxyCODONE HCL (*CRX) 2.5 MG TAB IR PO (13:35)
[2020-09-25 16:58] LABS: Glucose Point of Care 247 mg/dl (65-105)
[2020-09-25] MEDS: INSULIN GLARGINE (*BKC) 100 UNITS/ML 20 UNITS SUB-Q (21:12)
[2020-09-25] MEDS: diazePAM (*CRX) 5 MG TABLET PO (21:13)
[2020-09-25 22:19] LABS: Glucose Point of Care 381 mg/dl (65-105)
[2020-09-26] VITALS (11 sets, daily range): BP systolic 130–157; BP diastolic 74–82; PULSE 63–91; RESP 14–20; TEMP 36.2–36.9; O2SAT 99–100
[2020-09-26] MEDS: ALBUTEROL SULFATE NEB 2.5 MG/0.5 ML INH 5 MG INHALATION ×3 (02:12→14:23)
[2020-09-26] MEDS: IPRATROPIUM BR 0.02% INH SOLN 0.5 MG/2.5 ML VIAL INHALATION ×4 (02:12→20:28)
[2020-09-26 06:18] LABS: Alanine Aminotransferase 74 U/L (4-35); Albumin Level 3.4 g/dL (3.5-5.1); Alkaline Phosphatase 48 U/L (38-126); Anion Gap 9 mmol/L (8-16); Aspartate Amino Transferase 32 U/L (14-36); Bilirubin,Total 0.1 mg/dL (0.2-1.3); Blood Urea Nitrogen 16 mg/dL (7-17); Calcium 9.4 mg/dL (8.4-10.2); Carbon Dioxide 22 mmol/L (22-30); Chloride 104 mmol/L (98-107); Estimated CRCL calculation 78 ml/min; Estimated Glomerular Filt Rate > 60; Glucose 273 mg/dL (65-110); Potassium 4.3 mmol/L (3.4-5.0); Sodium 135 mmol/L (137-145)
[2020-09-26] MEDS: AMOXICILLIN/CLAVULANATE K 875-125 MG TAB 1 TABLET PO ×2 (09:31→21:34)
[2020-09-26] MEDS: PANTOPRAZOLE 40 MG TABLET PO (09:31)
[2020-09-26] MEDS: DICYCLOMINE HCL 10 MG CAPSULE 20 MG PO ×3 (09:31→17:27)
[2020-09-26] MEDS: BENZONATATE 100 MG CAPSULE PO ×2 (09:31→21:35)
[2020-09-26] MEDS: SACCHAROMYCES BOULARDII 250 MG CAPSULE PO ×2 (09:32→17:28)
[2020-09-26] MEDS: METOPROLOL SUCCINATE EXT REL 100 MG TABCR 200 MG PO (09:32)
[2020-09-26] MEDS: predniSONE 40 MG, predniSONE 10 MG 50 MG PO (09:32)
[2020-09-26] MEDS: INSULIN ASPART (*BKC) 100 UNITS/ML SUB-Q ×3 (09:33→19:32)
[2020-09-26] MEDS: oxyCODONE HCL (*CRX) 2.5 MG TAB IR PO ×2 (09:37→17:26)
[2020-09-26 11:19] LABS: Glucose Point of Care 257 mg/dl (65-105)
--- NOTE | 2020-09-26 12:49 | PM.IMPN ---
Progress Note: A&P Assessment and Plan (1) Dehydration: Code(s): E86.0 - Dehydration Status: Acute Assessment and Plan: Resolved S/p IVF Tolerating po Nausea improving (2) COPD exacerbation: Code(s): J44.1 - Chronic obstructive pulmonary disease with (acute) exacerbation Status: Acute Assessment and Plan: Continue with DuoNeb every 6 hours prn S/p IV Solu-Medrol, now on prednisone 50 mg daily (09/24/20), taper dose Continue Tessalon Perles t.i.d. and p.r.n. Robitussin Continue Augmentin I/S Increase activity (3) Nausea and vomiting: Code(s): R11.2 - Nausea with vomiting, unspecified Status: Acute Assessment and Plan: antiemetics p.r.n. Antitussives PRN. (4) Acute renal insufficiency: Code(s): N28.9 - Disorder of kidney and ureter, unspecified Status: Acute Assessment and Plan: Resolved S/p IVF Likely 2/2 dehydration, vomiting (5) Acute hypokalemia: Code(s): E87.6 - Hypokalemia Status: Acute Assessment and Plan: Resolved (6) Tobacco dependence: Code(s): F17.200 - Nicotine dependence, unspecified, uncomplicated Status: Acute Assessment and Plan: Cessation advised Has a plan to stop P.r.n. nicotine patch (7) Elevated LFTs: Code(s): R79.89 - Other specified abnormal findings of blood chemistry Status: Acute Assessment and Plan: She had negative COVID swab on 09/20/2020 LFT still elevated slightly inflammatory markers are negative Hepatitis panel is normal RUQ US-->Mild hepatic steatosis Subjective Date/time seen: 09/26/20 12:49 Interval history: Pt seen and evaluated; continues with cough and wheezes; denies any SOB; overall she states she feels about the same Review of Systems Review of Systems: All systems reviewed & are unremarkable except as noted in HPI and below Exam Const: General: no acute distress, alert and awake Orientation/consciousness: patient oriented x3 HENMT: Head: normocephalic and atraumatic Ears: hearing grossly normal bilaterally and external ears normal Face and sinus: face symmetric Mouth: Yes Normal oral and palatal mucosa present Eyes: Pupils: Equal, round and reactive pupils present EOM: EOMs intact bilaterally Neck: Neck: full ROM, trachea midline and no JVD Thyroid: thyroid normal Chest: Chest palpation & inspection: normal inspection of the chest Resp: Effort & Inspection: normal respiratory effort, audible wheezes and Actively coughing Auscultation: diminished lung sounds Cardio: Jugular venous distension: no JVD Rate: regular rate Rhythm: regular rhythm Heart sounds: S1 normal heart sound present and S2 normal heart sound present GI: Inspection: normal to inspection GI Palp: Yes Soft to palpation Percussion: Yes normal to percussion Auscultation: normal bowel sounds : General: Yes no CVA tenderness Back/Spine/Pelvis: Back: no CVA tenderness Skin: General skin exam: normal color Rashes: no rashes Neuro: General: patient oriented x3 and CN's II-XI intact bilaterally Cranial nerves: Yes Equal, round and reactive pupils present Speech: normal speech Psych: Appearance: grossly normal Affect: normal affect Judgement: Good judgement present (Psych) Objective Data Vital Signs Vital Signs: Vital Signs - 24 hr 09/25/20 14:00 09/25/20 14:05 09/25/20 14:12 Temperature 36.4 C Pulse Rate 69 72 74 Respiratory Rate 18 16 16 Blood Pressure 141/83 H Pulse Oximetry 100 09/25/20 21:05 09/25/20 21:15 09/25/20 22:00 Temperature 36.3 C L Pulse Rate 80 82 73 Respirat
[2020-09-26] MEDS: oxyCODONE/ACETAMINOPHEN (*CRX) 5-325 MG TABLET 1 TABLET PO (17:27)
[2020-09-26 18:20] LABS: Glucose Point of Care 374 mg/dl (65-105)
[2020-09-26] MEDS: diazePAM (*CRX) 5 MG TABLET PO (21:34)
[2020-09-26] MEDS: INSULIN GLARGINE (*BKC) 100 UNITS/ML 20 UNITS SUB-Q (21:35)
[2020-09-26 22:22] LABS: Glucose Point of Care 238 mg/dl (65-105)
[2020-09-27 02:45] VITALS: PULSE 83; RESP 16
[2020-09-27] MEDS: IPRATROPIUM BR 0.02% INH SOLN 0.5 MG/2.5 ML VIAL INHALATION ×2 (02:45→07:53)
[2020-09-27 05:40] VITALS: PULSE 84; RESP 14
[2020-09-27 06:00] VITALS: BP 128/66; PULSE 82; RESP 20; TEMP 36.6; O2SAT 100
[2020-09-27 06:03] LABS: Hematocrit 32.6 % (37.0-47.0); Hemoglobin 10.8 g/dL (12.0-15.0); Mean Corpuscular HGB Conc 33.1 g/dl (32-36); Mean Corpuscular Hemoglobin 26.9 pg (26-34); Mean Corpuscular Volume 81.1 fl (80-100); Mean Platelet Volume 11.1 fl (7.4-10.4); Platelet Count Result 186 k/mm3 (150-375); Red Blood Count 4.02 M/mm3 (4.2-5.4); Red Cell Distribution Width 12.7 % (11.5-14.5); White Blood Count 8.9 K/mm3 (4.5-10.0)
[2020-09-27 06:14] LABS: Anion Gap 9 mmol/L (8-16); Blood Urea Nitrogen 16 mg/dL (7-17); Calcium 9.5 mg/dL (8.4-10.2); Carbon Dioxide 22 mmol/L (22-30); Chloride 102 mmol/L (98-107); Estimated CRCL calculation 78 ml/min; Estimated Glomerular Filt Rate > 60; Glucose 257 mg/dL (65-110); Potassium 4.1 mmol/L (3.4-5.0); Sodium 133 mmol/L (137-145)
[2020-09-27 07:53] VITALS: PULSE 78; RESP 16
[2020-09-27 08:01] VITALS: PULSE 82; RESP 16
[2020-09-27 08:10] LABS: Glucose Point of Care 191 mg/dl (65-105)
[2020-09-27] MEDS: PANTOPRAZOLE 40 MG TABLET PO (08:23)
[2020-09-27] MEDS: predniSONE 40 MG, predniSONE 10 MG 50 MG PO (08:23)
[2020-09-27] MEDS: BENZONATATE 100 MG CAPSULE PO (08:24)
[2020-09-27] MEDS: DICYCLOMINE HCL 10 MG CAPSULE 20 MG PO ×2 (08:24→13:07)
[2020-09-27] MEDS: SACCHAROMYCES BOULARDII 250 MG CAPSULE PO (08:24)
[2020-09-27] MEDS: AMOXICILLIN/CLAVULANATE K 875-125 MG TAB 1 TABLET PO (08:24)
[2020-09-27] MEDS: oxyCODONE HCL (*CRX) 2.5 MG TAB IR PO (08:25)
[2020-09-27] MEDS: oxyCODONE/ACETAMINOPHEN (*CRX) 5-325 MG TABLET 1 TABLET PO (08:25)
[2020-09-27] MEDS: METOPROLOL SUCCINATE EXT REL 100 MG TABCR 200 MG PO (08:25)
[2020-09-27 12:01] LABS: Glucose Point of Care 239 mg/dl (65-105)
[2020-09-27] MEDS: INSULIN ASPART (*BKC) 100 UNITS/ML SUB-Q (13:08)
--- NOTE | 2020-09-27 15:22 | PM.DS ---
DS: Admitting Diagnosis Admitting Diagnosis NAUSEA AND VOMITING DS: Discharge Diagnosis Discharge Diagnosis (1) Dehydration: Code(s): E86.0 - Dehydration Status: Acute Assessment and Plan: Resolved S/p IVF Tolerating po Nausea resolved (2) COPD exacerbation: Code(s): J44.1 - Chronic obstructive pulmonary disease with (acute) exacerbation Status: Acute Assessment and Plan: Continue with DuoNeb every 6 hours prn S/p IV Solu-Medrol, now on prednisone 50 mg daily (09/24/20), taper dose Continue Tessalon Perles t.i.d. and p.r.n. Robitussin Continue Augmentin I/S (3) Nausea and vomiting: Code(s): R11.2 - Nausea with vomiting, unspecified Status: Acute Assessment and Plan: S/p antiemetics p.r.n. and Antitussives PRN (4) Acute renal insufficiency: Code(s): N28.9 - Disorder of kidney and ureter, unspecified Status: Acute Assessment and Plan: Resolved S/p IVF Likely 2/2 dehydration, vomiting (5) Acute hypokalemia: Code(s): E87.6 - Hypokalemia Status: Acute Assessment and Plan: Resolved (6) Tobacco dependence: Code(s): F17.200 - Nicotine dependence, unspecified, uncomplicated Status: Acute Assessment and Plan: Cessation advised Has a plan to stop (7) Elevated LFTs: Code(s): R79.89 - Other specified abnormal findings of blood chemistry Status: Acute Assessment and Plan: She had negative COVID swab on 09/20/2020 LFT still elevated slightly inflammatory markers are negative Hepatitis panel is normal RUQ US-->Mild hepatic steatosis DS: Summary Hospital Course Hospital Course: 40 year old lady with a PMH significant or DM type II, HTN and tobacco abuse. She presented to the ED with intractable nausea and vomiting for 3 days. She had been evaluated 2 days prior to admission and underwent CT of A/P with unremarkable findings; discharged home on po amoxicillin and antiemetics. She reported associated wheezing and a dry cough. In the ED preliminary workup was unremarkable. She had mild elevation in BUN and creatinine. She was treated for dehydration and is now stable and back to baseline. She was diagnosed with COPD and treated with IV steroids, duonebs and antibiotics were continued. She was also found with elevated LFTs. She underwent US of the abdomen and was found with mild hepatic steatosis. She has been advised and given information regarding lifestyle modifications. Clinically her symptoms have improved. She will be discharged with a steroid taper and NATALIA. She has been advised to follow up with her PCP within 2 weeks. Time Spent with Patient Time attestation: Total time spent providing and/or coordinating discharge services: Exam Const: General: no acute distress, alert and awake Orientation/consciousness: patient oriented x3 HENMT: Head: normocephalic and atraumatic Ears: hearing grossly normal bilaterally and external ears normal Face and sinus: face symmetric Mouth: Yes Normal oral and palatal mucosa present Eyes: Pupils: Equal, round and reactive pupils present EOM: EOMs intact bilaterally Neck: Neck: full ROM, trachea midline and no JVD Thyroid: thyroid normal Chest: Chest palpation & inspection: normal inspection of the chest Resp: Effort & Inspection: normal respiratory effort, audible wheezes and Actively coughing Auscultation: diminished lung sounds Cardio: Jugular venous distension: no JVD Rate: regular rate Rhythm: regular rhythm Heart sounds: S1 normal heart sound present and S2 normal heart sound present GI: Inspection: normal to inspection Auscultation: normal bowel sounds : General: Yes no CVA tenderness Back/Spine/Pelvis: Back: no CVA tenderness Skin: General skin exam: normal color Rashes: no rashes Neuro: General: patient oriented x3 and CN's II-XI intact bilaterally Cranial nerves: Yes Equal, round a
== END 2020-09-27 14:25 | disposition home or self-care (01) | DRG 192 ==
LOC: ANHED 21:49 → ANH3MEDSUR 22:01
PROVIDERS: Physician Assistant; Admitting Provider Internal Medicine; Emergency Provider Emergency Medicine; PCP Family Medicine; Visit Provider Nurse Practitioner Adult Health
DX: J44.1 Chronic obstructive pulmonary disease with (acute) exacerbation (principal); E87.6 Hypokalemia; E78.5 Hyperlipidemia, unspecified; F41.8 Other specified anxiety disorders; E11.9 Type 2 diabetes mellitus without complications; F17.200 Nicotine dependence, unspecified, uncomplicated; E86.0 Dehydration; N28.9 Disorder of kidney and ureter, unspecified
CPT/HCPCS: 36415; 71045; 71275; 76705; 80048; 80053; 80074; 82728; 82948; 83605; 83615; 83690; 83735; 84484; 85025; 85027; 85610; 85730; 86140; 87040; 87070; 87205; 93005; 94640; 96361; 96374; 96375; 96376; 99285; A9270; G0378; J1815; J2405; J2930; J7030; J7512; Q9967

== ENCOUNTER 2022-01-18 11:48 | Outpatient (CLI) | payer BC, SELFPAY ==
[2022-01-18 12:15] LABS: Hematocrit 44.2 % (37.0-47.0); Mean Corpuscular HGB Conc 31.7 g/dl (32-36); Mean Corpuscular Hemoglobin 27.4 pg (26-34); Mean Corpuscular Volume 86.5 fl (80-100); Mean Platelet Volume 11.2 fl (7.4-10.4); Platelet Count Result 261 k/mm3 (150-375); Red Blood Count 5.11 M/mm3 (4.2-5.4); Red Cell Distribution Width 13.5 % (11.5-14.5); White Blood Count 5.1 K/mm3 (4.5-10.0)
[2022-01-18 12:25] LABS: Alanine Aminotransferase 35 U/L (6-35); Alkaline Phosphatase 74 U/L (38-126); Amylase 109 U/L (30-110); Anion Gap 7 mmol/L (8-16); Aspartate Amino Transferase 29 U/L (14-36); Bilirubin,Total 0.2 mg/dL (0.2-1.3); Blood Urea Nitrogen 22 mg/dL (7-17); Calcium 10.3 mg/dL (8.4-10.2); Carbon Dioxide 22 mmol/L (22-30); Chloride 106 mmol/L (98-107); Estimated Glomerular Filt Rate > 60; Glucose 216 mg/dL (65-110); Lipase 433 U/L (23-300); Potassium 4.3 mmol/L (3.4-5.0); Sodium 135 mmol/L (137-145); Triglycerides 168 mg/dL (<150)
== END 2022-01-18 11:49 | disposition home or self-care (01) ==
LOC: ANHLAB 11:50
PROVIDERS: PCP Family Medicine; Visit Provider Nurse Practitioner Family
DX: K85.90 Acute pancreatitis without necrosis or infection, unspecified (principal)
CPT/HCPCS: 36415; 80053; 82150; 83690; 84478; 85027

== ENCOUNTER 2022-02-16 00:56 | Day surgery (SDC) | payer BC, SELFPAY ==
[2022-02-08 12:42] VITALS: BMI 26.0
[2022-02-16 08:10] LABS: Glucose Point of Care 165 mg/dl (65-105)
[2022-02-16 08:13] VITALS: BP 131/80; PULSE 77; RESP 16; TEMP 35.9; O2SAT 100
[2022-02-16] MEDS: LACTATED RINGERS 1,000 ML 150 ML IV CONT (08:15)
--- NOTE | 2022-02-16 08:46 | WPDANESEPPF ---
Anes - Initial Pre Proc Eval Procedure: Operation Date: 02/16/22 09:30 Proposed Procedures p Esophagogastroduodenoscopy - Sonny Pennington MD Date/Time: 02/16/22 08:46 Surgeon: Sonny Pennington MD Pre Op Diagnosis: gastritis, nausea, GERD Patient Data Age: 41 Gender: F Height: 1.7 m Weight: 77.7 kg Last Vital Signs Temp 35.9 C L 02/16/22 08:13 Pulse 77 02/16/22 08:13 Resp 16 02/16/22 08:13 BP 131/80 02/16/22 08:13 Pulse Ox 100 02/16/22 08:13 O2 Del Method Room Air 02/16/22 08:13 Allergies Allergy/AdvReac Type Severity Reaction Status Date / Time azithromycin Allergy Mild Hives Verified 02/16/22 08:10 codeine Allergy Mild Swelling Verified 02/16/22 08:10 of Lip/Tongue/Throat hydrocodone Allergy Mild Hives Verified 02/16/22 08:10 hydromorphone Allergy Mild Hives Verified 02/16/22 08:10 levofloxacin Allergy Mild rash/itchin Verified 02/16/22 08:10 g meperidine Allergy Mild Hives Verified 02/16/22 08:10 Home Medications Medication Instructions Recorded Confirmed Type ondansetron HCl 4 mg tablet 4 mg PO Q8H #10 tabs 09/20/20 02/16/22 Rx (Zofran) diazepam 5 mg PO HS PRN Insomnia 09/23/20 02/16/22 History albuterol sulfate 90 mcg/actuation 2 puff inhalation QID PRN 09/27/20 02/16/22 Rx aerosol inhaler (ProAir HFA) shortness of breath or wheezing #6.7 grams insulin detemir U-100 100 unit/mL 40 unit subcut QHS 01/18/22 02/16/22 History (3 mL) subcutaneous pen (Levemir FlexTouch U-100 Insulin) insulin detemir U-100 100 unit/mL 10 unit subcut QHS 01/18/22 02/16/22 History subcutaneous solution (Levemir U-100 Insulin) nebivolol 2.5 mg tablet 2.5 mg PO DAILY 01/18/22 02/16/22 History omeprazole 40 mg capsule,delayed 40 mg PO DAILY 1 month #30 caps 01/18/22 02/16/22 Rx release valsartan 320 mg tablet 320 mg PO DAILY 01/18/22 02/16/22 History atorvastatin 80 mg tablet 810 mg PO DAILY 02/08/22 02/16/22 History duloxetine 60 mg capsule,delayed 60 mg PO DAILY 02/08/22 02/16/22 History release ergocalciferol (vitamin D2) 1,250 1,250 mcg PO DAILY 02/08/22 02/16/22 History mcg (50,000 unit) capsule quetiapine 100 mg tablet 100 mg PO DAILY 02/08/22 02/16/22 History [id number] See Rx Instructions .Route 02/15/22 02/16/22 Rx 36,000-114,000-180,000 unit .COMPLEX #240 caps capsule,delay rel (Creon) Laboratory Tests 02/16/22 08:07 POC Capillary Glucose 165 mg/dl H mg/dl (65-105) Patient hx anesthesia problems: none Family hx anesthesia problems: none Results Review: All pre-operative results and documents have been reviewed as part of the pre-operative evaluation. [facility] Past Medical History Medical History Anxiety and depression Arthritis Diabetes Fatty liver Fibromyalgia Hyperlipidemia Hypertension Irritable bowel syndrome with alternating bowel habits Left hand fracture Pancreatitis Pneumonia Pyloric ulcer associated with Helicobacter pylori Surgical History Surgical History History of cervical spinal surgery Family History Family History Father Hypertension Mother Diabetes mellitus Social History Social History Smoking status: Current every day smoker Tobacco type: cigarettes Additional smoking assessment comments: Black and Mild cigars. Alcohol intake: never Substance use: never Substance use type: does not use Living arrangements: alone Gender identity (if verbalized by the patient): Female Spiritual care concerns: No Anes - Eval Final PreProcedure Day of Procedure 02/16/22 08:46 Patient weight: overweight Heart: regular rate and rhythm Lungs: clear to auscultation Airway: Mallampati scale class II Neurologi
--- NOTE | 2022-02-16 09:04 | WPDHPUPDATE1 ---
History and Physical Update Update Date/Time: 02/16/22 09:04 History and Physical has been reviewed, including an updated exam of the patient. There are NO changes in the patient's condition. Risks, benefits, and alternatives have been discussed and questions answered. Patient agrees to proceed with procedure.
[2022-02-16 09:18] VITALS: BP 128/80; PULSE 81; RESP 20; O2SAT 100
[2022-02-16 09:28] VITALS: BP 116/75; PULSE 81; RESP 20; O2SAT 100
[2022-02-16 09:36] LABS: Glucose Point of Care 153 mg/dl (65-105)
[2022-02-16 09:38] VITALS: BP 125/81; PULSE 87; RESP 20; O2SAT 100
== END 2022-02-16 09:52 | disposition home or self-care (01) ==
PROVIDERS: PCP Family Medicine; Visit Provider Internal Medicine Gastroenterology
PROC: 0DJ08ZZ Inspection of Upper Intestinal Tract, Via Natural or Artificial Opening Endoscopic (ICD-10-PCS; CPT 43235; principal; 2022-02-16 09:30)
DX: K29.70 Gastritis, unspecified, without bleeding (principal); I10 Essential (primary) hypertension; E11.9 Type 2 diabetes mellitus without complications; E78.5 Hyperlipidemia, unspecified; F41.8 Other specified anxiety disorders; K76.0 Fatty (change of) liver, not elsewhere classified; K58.2 Mixed irritable bowel syndrome; Z87.11 Personal history of peptic ulcer disease; F17.210 Nicotine dependence, cigarettes, uncomplicated; F17.290 Nicotine dependence, other tobacco product, uncomplicated; Z79.51 Long term (current) use of inhaled steroids; Z79.4 Long term (current) use of insulin
CPT/HCPCS: 43239; 82948; 88305; J2704; J7120

== ENCOUNTER 2022-03-08 10:23 | Outpatient (CLI) | payer BC, SELFPAY ==
[2022-03-08 11:06] LABS: Alanine Aminotransferase 24 U/L (6-35); Albumin Level 4.5 g/dL (3.5-5.1); Alkaline Phosphatase 75 U/L (38-126); Amylase 83 U/L (30-110); Anion Gap 5 mmol/L (8-16); Aspartate Amino Transferase 21 U/L (14-36); Bilirubin,Total 0.4 mg/dL (0.2-1.3); Blood Urea Nitrogen 16 mg/dL (7-17); CRP < 0.5 mg/dL (<1.0); Calcium 9.1 mg/dL (8.4-10.2); Carbon Dioxide 29 mmol/L (22-30); Chloride 105 mmol/L (98-107); Estimated Glomerular Filt Rate > 60; Glucose 183 mg/dL (65-110); Lipase 313 U/L (23-300); Potassium 4.4 mmol/L (3.4-5.0); Sodium 139 mmol/L (137-145)
[2022-03-08 11:13] LABS: Hematocrit 39.3 % (37.0-47.0); Hemoglobin 12.7 g/dL (12.0-15.0); Mean Corpuscular HGB Conc 32.3 g/dl (32-36); Mean Corpuscular Hemoglobin 26.8 pg (26-34); Mean Corpuscular Volume 83.1 fl (80-100); Mean Platelet Volume 10.5 fl (7.4-10.4); Platelet Count Result 269 k/mm3 (150-375); Red Blood Count 4.73 M/mm3 (4.2-5.4); Red Cell Distribution Width 14.5 % (11.5-14.5); White Blood Count 6.9 K/mm3 (4.5-10.0)
== END 2022-03-08 10:24 | disposition home or self-care (01) ==
LOC: ANHLAB 10:25
PROVIDERS: PCP Family Medicine; Visit Provider Nurse Practitioner Family
DX: R11.2 Nausea with vomiting, unspecified (principal)
CPT/HCPCS: 36415; 80053; 82150; 83690; 85027; 86140

== ENCOUNTER 2022-03-31 08:15 | Outpatient (CLI) | payer BC, SELFPAY ==
--- NOTE | ~2022-03-31 | MR_ITS ---
EXAMINATION: MR MRCP wo/w con/w 3D wo ind DATE: 03/31/2022 10:06 INDICATION: Abdominal pain, elevated lipase TECHNIQUE: Magnetic resonance imaging (MRI) of the abdomen was performed without and with intravenous contrast. Sequences included coronal T2-weighted SS-FSE ARC, coronal T2-weighted FS SS-FSE, coronal T2-weighted 2D FS FIESTA, Water:Coronal LAVA-Flex, sagittal T2-weighted SS-FSE ARC, axial SSFSE ARC, axial 3D DualEcho, axial DWI B=600, axial T1-weighted LAVA, FAT:Coronal LAVA-Flex, and coronal in and opposed phase LAVA-Flex. Thick-slab T2-weighted FRFSE-XL images were obtained for magnetic resonance cholangiopancreatography (MRCP). Maximum intensity projection 3-D reconstructions of the volumetric data were created by the technologist. Postcontrast sequences included a time course of axial T1-weig hted LAVA, FAT:Coronal LAVA-Flex, coronal in and opposed phase LAVA-Flex, and Water:Coronal LAVA-Flex . COMPARISON: CT, 09/20/2020 CONTRAST: Multihance, 16 cc FINDINGS: ABDOMEN MRI: The liver, spleen, pancreas, gallbladder, and adrenal glands are normal. The right kidne y is unremarkable. There is an 8 mm cyst of the left kidney. There is mild periportal lymphadenopathy . No dilated loops of bowel are identified. There is no abnormal enhancement after contrast administr ation. ABDOMEN MRCP: There is no intrahepatic or extrahepatic biliary dilatation. The pancreatic duct is nor mal in course and caliber. IMPRESSION: 1. No MR correlate for elevated lipase. 2. Mild periportal lymphadenopathy, likely reactive. Reviewed, dictated and finalized at location L. 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
--- NOTE | ~2022-03-31 | NM_ITS ---
EXAM: NM gastric emptying study DATE: 03/31/2022 15:06 INDICATION: Nausea and vomiting TECHNIQUE: A gastric emptying study was performed using the methodology of Stephanie ORELLANA, et al. J Nucl Med 2007; 48:568-572. The patient was given a meal consisting of 2 scrambled eggs labeled with 0.953 mCi Tc-99m sulfur colloid, 2 slices of toast, two packages of jam, and approximately 120 mL of water . Simultaneous anterior and posterior 1-min images of the abdomen were obtained with the patient supi ne at multiple time points over a total period of 4 hours. The geometric mean of anterior and posteri or views was determined, and the percentage retention was calculated for each time point. COMPARISON: None. FINDINGS: Gastric retention of the radiotracer-labeled meal was 56%, 33%, and 2% at the 1-hour, 2-hour, and 4-h our time points, respectively. With this technique, apparent rapid gastric emptying is suggested by < 30% gastric retention at 1 hour. Delayed gastric emptying is defined by gastric retention of >90% at 1 hour, >60% retention at 2 hours, or >10% retention at 4 hours. IMPRESSION: 1. Normal gastric emptying. Reviewed, dictated and finalized at location A. RATORY CHEMIST IMPRESSION: 1. Normal gastric emptying.
== END 2022-03-31 08:16 | disposition home or self-care (01) ==
PROVIDERS: PCP Family Medicine; Visit Provider Nurse Practitioner Family
DX: R11.2 Nausea with vomiting, unspecified (principal)
CPT/HCPCS: 74183; 76376; 78264; A9541; A9577

== ENCOUNTER 2022-04-27 00:29 | Day surgery (SDC) | payer BC, SELFPAY ==
[2022-04-19 15:15] VITALS: BMI 28.0
--- NOTE | 2022-04-19 15:21 | PC.NURSE ---
Report to the Outpatient Waiting Room, entrance under the green pavilion located off [facility], at time 0600 on date 04/27/22. Planned Procedure Time: 0730. Time changes happen often and if your time is changed the preop area will call you the afternoon before. - You and your visitor will be asked to self-screen and do not enter if you have any COVID symptoms. - Only one visitor is requested with a max of two and NO children visitors are allowed at this time. - The patient visitor may be requested to leave or wait in car when not with patient due to distancing restrictions. - A mask is optional within the hospital at this time. Patient TO have ONLY clear liquids DAY BEFORE SURGERY. NO FOOD OR DRINK AFTER MIDNIGHT. Take the following medications with a SIP of water the morning of surgery: INHALER IF NEEDED, PAIN PILL IF NEEDED, DULOXETINE, NEBIVOLOL, DIAZEPAM IF NEEDED DO NOT STOP ANY OF YOUR OTHER PRESCRIPTION MEDICATIONS PRIOR TO SURGERY EXCEPT THE FOLLOWING Medications to discontinue per physician: VITAMINS/SUPPLEMENTS Date to take last dose: 04/23/22 FLEETS ENEMA NIGHT BEFORE AND MORNING OF SURGERY. DULCOLAX 5MG TABLET AT BEDTIME THE NIGHT BEFORE SURGERY. Please no make-up, nail german, hairspray, perfume, deodorant, or body powder the day of surgery. No jewelry (including any body piercings) or valuables the day of surgery, leave them at home. Please take a shower or bath the night before, or the morning of, surgery with an antibacterial soap. Wear comfortable, loose fitting clothing. - Jewelry must be removed prior to entering the operating room. Rings and piercings that are not removed may be cut off. - The hospital will not accept responsibility for valuables. - Please leave all valuables, including medications, at home the day of surgery. If you are going home after surgery, a licensed over the road driver must drive you home. - NO public transportation without another adult if you receive anesthesia. - We recommend that an adult stay with you for 24 hours following discharge. - We also recommend that you do not drive, make important decision, drink alcoholic beverages, or take any drugs that were not prescribed by your health care provider for at least 24 hours after your discharge time. Follow any additional instructions given to you from your surgeon. If you or anyone in your household have experienced Covid symptoms in the past week, please notify your surgeon or the nurse liaison at the phone number below for possible testing. Telephone instructions given to SANJUANA PICKENS and asked if any additional questions and then verbalized understanding. Patient advised to call surgeon office or pre surgery nurse liaison [phone] if any additional questions.
[2022-04-27] VITALS (9 sets, daily range): BP systolic 122–161; BP diastolic 84–103; PULSE 61–87; RESP 14–20; TEMP 36.1–36.4; O2SAT 96–100
--- NOTE | 2022-04-27 06:40 | WPDANESEPPF ---
Anes - Initial Pre Proc Eval Procedure: Operation Date: 04/27/22 07:30 Proposed Procedures p Hemorrhoidectomy - Nato Beckham MD Date/Time: 04/27/22 06:40 Surgeon: Nato Beckham MD Pre Op Diagnosis: prolapsing internal and external hemorrhoids Patient Data Age: 41 Gender: F Height: 1.7 m Weight: 79.75 kg Allergies Allergy/AdvReac Type Severity Reaction Status Date / Time azithromycin Allergy Mild Hives Verified 04/27/22 06:09 codeine Allergy Mild Swelling Verified 04/27/22 06:09 of Lip/Tongue/Throat hydrocodone Allergy Mild Hives Verified 04/27/22 06:09 hydromorphone Allergy Mild Hives Verified 04/27/22 06:09 levofloxacin Allergy Mild rash/itchin Verified 04/27/22 06:09 g meperidine Allergy Mild Hives Verified 04/27/22 06:09 latex Allergy Hives Verified 04/27/22 06:09 Home Medications Medication Instructions Recorded Confirmed Type albuterol sulfate 90 mcg/actuation 2 puff inhalation QID PRN 09/27/20 04/27/22 Rx aerosol inhaler (ProAir HFA) shortness of breath or wheezing #6.7 grams insulin detemir U-100 100 unit/mL 40 unit subcut QHS 01/18/22 04/27/22 History (3 mL) subcutaneous pen (Levemir FlexTouch U-100 Insulin) valsartan 320 mg tablet 320 mg PO DAILY 01/18/22 04/27/22 History atorvastatin 80 mg tablet 80 mg PO HS 02/08/22 04/27/22 History duloxetine 60 mg capsule,delayed 60 mg PO BID 02/08/22 04/27/22 History release ergocalciferol (vitamin D2) 1,250 1,250 mcg PO WEEKLY 02/08/22 04/27/22 History mcg (50,000 unit) capsule [id number] See Rx Instructions .Route 02/15/22 04/27/22 Rx 36,000-114,000-180,000 unit .COMPLEX #240 caps capsule,delay rel (Creon) glimepiride 4 mg tablet 4 mg PO QAM 03/08/22 04/27/22 History hydroxyzine HCl 25 mg tablet 25 mg PO BID PRN Itching 03/08/22 04/27/22 History ondansetron HCl 4 mg tablet 4 mg PO Q8H #30 tabs 03/08/22 04/27/22 Rx nebivolol 2.5 mg tablet 5 mg PO DAILY 04/05/22 04/27/22 History omeprazole 40 mg capsule,delayed 40 mg PO BID 3 months #180 caps 04/05/22 04/27/22 Rx release oxycodone 10 mg tablet 10 mg PO Q6H PRN Pain 04/05/22 04/27/22 History quetiapine 100 mg tablet 100 mg PO QHS 04/05/22 04/27/22 History diazepam 5 mg tablet 5 mg PO BID PRN Anxiety 04/19/22 04/27/22 History Patient hx anesthesia problems: none Family hx anesthesia problems: none Results Review: All pre-operative results and documents have been reviewed as part of the pre-operative evaluation. [facility] Past Medical History Medical History Anxiety and depression Arthritis Diabetes Fatty liver Fibromyalgia Hemorrhoids Hyperlipidemia Hypertension Irritable bowel syndrome with alternating bowel habits Left hand fracture Pancreatitis Pneumonia Pyloric ulcer associated with Helicobacter pylori Surgical History Surgical History H/O hand surgery History of cervical spinal surgery S/P bilateral foot surgery Family History Family History Father Hypertension Mother Diabetes mellitus Social History Social History Smoking packs per day: 1 Smoking cigarettes per day: 20.0 Years smoked: 20 Smoking pack-years: 20.00 Smoking status: Current every day smoker Tobacco type: cigarettes Additional smoking assessment comments: Black and Mild cigars. Alcohol intake: never Substance use: never Substance use type: does not use Living arrangements: alone Gender identity (if verbalized by the patient): Female Spiritual care concerns: No Anes - Eval Final PreProcedure Day of Procedure 04/27/22 06:40 Patient weight: overweight Heart: regular rate and rhythm Lungs: decreased breath sounds Airway: Mallampati scale class II Neurological: alert and oriented Last oral i
[2022-04-27] MEDS: ACETAMINOPHEN 500 MG TABLET 1000 MG PO (06:52)
[2022-04-27] MEDS: KETOROLAC 15 MG/ML VIAL (*BKC) IV PUSH (06:54)
[2022-04-27] MEDS: LACTATED RINGERS 1,000 ML 30 ML IV CONT (06:58)
[2022-04-27 07:03] LABS: Glucose Point of Care 167 mg/dl (65-105)
--- NOTE | 2022-04-27 07:10 | SUR.PREOP ---
PER DR GA PATIENT IS OKAY TO KEEP CONTINUOUS BLOOD GLUCOSE MONITOR IN RIGHT ARM FOR THIS PROCEDURE.
--- NOTE | 2022-04-27 07:12 | WPDHPUPDATE1 ---
History and Physical Update Update Date/Time: 04/27/22 07:12 History and Physical has been reviewed, including an updated exam of the patient. There are NO changes in the patient's condition. Risks, benefits, and alternatives have been discussed and questions answered. Patient agrees to proceed with procedure.
[2022-04-27] MEDS: ceFAZolin 2 GM/D5W 50 ML 2 GM/50 ML BAG IVPB (07:23)
[2022-04-27] MEDS: BUPivacaine HCL 0.5% PF 30 ML VIAL INFILTRATE (07:54)
--- NOTE | 2022-04-27 08:12 | P.OP_ITS ---
Procedure Note - Detailed Date of Procedure 04/27/22 Pre-op Diagnosis prolapsing internal and external hemorrhoids Post-op Diagnosis Same Procedure Performed Rubber-band ligation internal hemorrhoids, excision single column internal and e xternal hemorrhoid right anterior location Surgeon Nato Beckham MD [employer] Mulu Mendenhall [facility] Anesthesia General and Local (0.5% Marcaine with Exparel) Indications Patient has had rectal bleeding and prolapse of hemorrhoids. Exam showed a r ight anterior complex of stage IV internal and external hemorrhoids. She is taken to surgery now for hemorrhoidectomy. Findings She had a large internal hemorrhoid next to the complex of internal and external hemorrhoids. The right anterior complex was prolapsing and chronically prolapsed with internal and external hemorrhoids. Description of Procedure Patient was taken to surgery and induced into general anesthesia. She was then turned onto a prone position and placed in prone willy-knife. The buttocks was taped apart. Prep and drape was carried out. A small Hill-Bo anoscope was introduced into the rectum. The pathology above was noted. No other anorectal pathology was seen. I rubber-band ligated the internal hemorrhoid. I then infiltrated local anesthetic around the complex of internal and external hemorrhoids in the right anterior quadrant. The internal and external hemo rrhoids were then excised. Cautery was used to achieve better hemostasis. The wound was closed with running locking 4-0 chromic suture. The closure was hemostatic. I then infiltrated local thoroughly throughout the perianal region including deep subdermal an intramuscular infiltration. The rectum was then dressed was Xeroform gauze fluffs and tape. Patient was returned to a supine position. She was awakened and taken to recovery in good condition. Sponge and needle counts were correct x2. Estimated Blood Loss -5 Drains No Packing No Pathology Yes (Right anterior complex of internal and external hemorrhoids) Complications No immediate complications Condition Stable Disposition PACU [facility] Billing Surgery - Charge Forward: Surgery Billing (Rubber-band ligation internal hemorrhoids, excisions single complex internal and external hemorrhoids.)
[2022-04-27 08:39] LABS: Glucose Point of Care 127 mg/dl (65-105)
--- NOTE | 2022-04-27 09:25 | SUR.PHASEII ---
0915- Notified Dr. Bowie of patient's elevated blood pressure 161/103 with HR in 60's. Per Dr. Bowie instruct patient to take home blood pressure medication. 09- Educated patient on elevated blood pressure and to resume blood pressure medication at home, patient verbalized understanding and will resume home medication.
== END 2022-04-27 09:40 | disposition home or self-care (01) ==
PROVIDERS: PCP Family Medicine; Visit Provider Surgery
PROC: (CPT 46255; principal; 2022-04-27 07:30)
DX: K64.8 Other hemorrhoids (principal); I10 Essential (primary) hypertension; E11.9 Type 2 diabetes mellitus without complications; E78.5 Hyperlipidemia, unspecified; K58.2 Mixed irritable bowel syndrome; F41.8 Other specified anxiety disorders; M79.7 Fibromyalgia; K76.0 Fatty (change of) liver, not elsewhere classified; F17.290 Nicotine dependence, other tobacco product, uncomplicated; Z79.51 Long term (current) use of inhaled steroids; Z79.84 Long term (current) use of oral hypoglycemic drugs; Z79.4 Long term (current) use of insulin
CPT/HCPCS: 46255; 82948; 88304; A9270; C9290; J0690; J1100; J1885; J2250; J2405; J2704; J2710; J3010; J7120

== ENCOUNTER 2022-05-22 13:25 | Emergency (ER) | payer BC, SELFPAY ==
--- NOTE | ~2022-05-22 | CT_ITS ---
EXAMINATION: CT abdomen pelvis w con DATE: 05/22/2022 16:40 INDICATION: Left upper quadrant abdominal pain TECHNIQUE: Computed tomography (CT) of the abdomen and pelvis was performed with 100 CC Omnipaque 350 intravenous contrast. Automated exposure control and iterative reconstruction technique were employe d. Exam dose: 606.19 mGy-cm total exam DLP. COMPARISON: 09/25/2020 Limited abdominal ultrasound examination 09/20/2020 CT abdomen pelvis FINDINGS: Chronic stable mild discoid scarring, posterior right lung base. The included lower lung zo markos are clear of infiltrate or consolidation. Normal heart size. No pericardial or pleural effusion. The liver, gallbladder, spleen, pancreas, pancreatic duct and bile ducts are unremarkable. Normal morphology of the adrenal glands. No renal mass lesion or urinary tract calculus or hydroureteronephrosis. Urinary bladder is unremarka ble. Up to 1.9 cm right ovarian cysts. Approximately 2.1 cm left adnexal cystic lesion. Normal caliber of the abdominal aorta. No intraperitoneal or retroperitoneal or pelvic mass lesion or adenopathy or ascites. Shotty bilateral inguinal lymph nodes. Normal appendix. No bowel obstruction, bowel wall thickening, pneumatosis or intraperitoneal free air . Included skeletal structures are unremarkable. IMPRESSION: Normal appendix Bilateral ovarian cysts Reviewed, dictated and finalized at [facility] Reviewed, dictated and finalized at [facility].
[2022-05-22 13:26] VITALS: BP 177/99; PULSE 93; RESP 16; TEMP 36.7; O2SAT 100
[2022-05-22 13:53] LABS: Basophils Percent Auto 0.5 % (0.2-1.2); Eosinophils Absolute Auto 0.1 K/mm3 (0-0.3); Eosinophils Percent Auto 2.7 % (0-4.4); Hematocrit 38.2 % (37.0-47.0); Hemoglobin 12.5 g/dL (12.0-15.0); Immature Granulocyte Absolute 0.01 K/mm3 (0.00-0.031); Immature Granulocyte Percent A 0.2 % (0-0.5); Lymphocytes Absolute Auto 1.94 K/mm3 (0.9-3.2); Lymphocytes Percent Auto 48.3 % (18.3-44.2); Mean Corpuscular HGB Conc 32.7 g/dl (32-36); Mean Corpuscular Hemoglobin 27.5 pg (26-34); Monocytes Absolute Auto 0.3 K/mm3 (0.1-0.6); Monocytes Percent Auto 6.5 % (2.6-8.5); Neutrophils Absolute Auto 1.7 K/mm3 (1.3-6.7); Neutrophils Percent Auto 41.8 % (45.5-73.1); Platelet Count Result 206 k/mm3 (150-375); Red Blood Count 4.55 M/mm3 (4.2-5.4); Red Cell Distribution Width 13.9 % (11.5-14.5)
[2022-05-22 13:56] LABS: Appearance Urine Clear (Clear); Bilirubin Urine Negative (Negative); Blood Urine Negative (Negative); Color Urine Yellow (Yellow); Glucose Urine UA 3+ mg/dL (Negative); Ketones Urine Negative (Negative); Leukocyte Esterase Ur Negative LEU/UL (Negative); Nitrate Urine Negative (Negative); Protein Urine Negative (Negative); Specific Grav Ur 1.035 (1.001-1.035); Urobilinogen Urine 0.2 mg/dL (<2.0); pH Urine 5.5 (5.0-9.0)
[2022-05-22 13:59] LABS: Add Urine Microscopic? NO
[2022-05-22 14:05] LABS: Alanine Aminotransferase 34 U/L (6-35); Albumin Level 4.3 g/dL (3.5-5.1); Alkaline Phosphatase 73 U/L (38-126); Anion Gap 6 mmol/L (8-16); Aspartate Amino Transferase 27 U/L (14-36); Bilirubin,Total 0.5 mg/dL (0.2-1.3); Blood Urea Nitrogen 12 mg/dL (7-17); Calcium 8.8 mg/dL (8.4-10.2); Carbon Dioxide 22 mmol/L (22-30); Chloride 108 mmol/L (98-107); Estimated CRCL calculation 100 ml/min; Estimated Glomerular Filt Rate > 60; Glucose 274 mg/dL (65-110); Lipase 274 U/L (23-300); Sodium 136 mmol/L (137-145)
[2022-05-22 16:05] LABS: Pregnancy On Board Control Positive; Urine Pregnancy Test Negative
[2022-05-22] MEDS: BELLADONNA ALK/PHENOB ELIX 10 ML, MAG HYDROX/ALUMINUM HYD/SIMETH 30 ML, LIDOCAINE HCL 2... PO (16:43)
[2022-05-22] MEDS: FAMOTIDINE 20 MG/2 ML VIAL 40 MG IV PUSH (16:44)
[2022-05-22] MEDS: LACTATED RINGERS 1,000 ML 999 ML IV CONT (16:45)
--- NOTE | 2022-05-22 17:26 | ED.ABDPAIN ---
HPI - Abdominal Pain General Chief Complaint: Abdominal Pain Stated Complaint: abd pain Time Seen by Provider: 05/22/22 15:56 History of Present Illness HPI narrative: This is a 41-year-old female, with past medical history of diabetes, hemorrhoids, who presents emergency department complaining of left side upper abdominal pain for the past 3 days. The pain is described as sharp, rated 8/10, aggravated very quickly after eating, without radiation, nausea, vomiting or bleeding. Related Data Home Medications Medication Instructions Recorded Confirmed insulin detemir U-100 100 unit/mL 40 unit subcut QHS 01/18/22 05/15/22 (3 mL) subcutaneous pen (Levemir FlexTouch U-100 Insulin) valsartan 320 mg tablet 320 mg PO DAILY 01/18/22 05/15/22 atorvastatin 80 mg tablet 80 mg PO HS 02/08/22 05/15/22 duloxetine 60 mg capsule,delayed 60 mg PO BID 02/08/22 05/15/22 release ergocalciferol (vitamin D2) 1,250 1,250 mcg PO WEEKLY 02/08/22 05/15/22 mcg (50,000 unit) capsule glimepiride 4 mg tablet 4 mg PO QAM 03/08/22 05/15/22 hydroxyzine HCl 25 mg tablet 25 mg PO BID PRN Itching 03/08/22 05/15/22 nebivolol 2.5 mg tablet 5 mg PO DAILY 04/05/22 05/15/22 oxycodone 10 mg tablet 10 mg PO Q6H PRN Pain 04/05/22 05/15/22 quetiapine 100 mg tablet 100 mg PO QHS 04/05/22 05/15/22 diazepam 5 mg tablet 5 mg PO BID PRN Anxiety 04/19/22 05/15/22 Allergies Allergy/AdvReac Type Severity Reaction Status Date / Time azithromycin Allergy Mild Hives Verified 05/22/22 13:31 codeine Allergy Mild Swelling Verified 05/22/22 13:31 of Lip/Tongue/Throat hydrocodone Allergy Mild Hives Verified 05/22/22 13:31 hydromorphone Allergy Mild Hives Verified 05/22/22 13:31 levofloxacin Allergy Mild rash/itchin Verified 05/22/22 13:31 g meperidine Allergy Mild Hives Verified 05/22/22 13:31 latex Allergy Hives Verified 05/22/22 13:31 Review of Systems Review of Systems: CONSTITUTIONAL: Denies fever, chills, or sweats. CARDIOVASCULAR: Denies chest pain, palpitations, or edema. RESPIRATORY: Denies cough or dyspnea. GASTROINTESTINAL: Left upper quadrant abdominal pain denies nausea, vomiting, or diarrhea. GENITOURINARY: Denies dysuria or hematuria. SKIN: Denies rash or itching. MUSCULOSKELETAL: Denies back pain, joint pain, or myalgia. NEUROLOGIC: Denies headache, numbness, dizziness, or weakness. PSYCHIATRIC: Denies anxiety or depression. [facility] Past Medical History Medical History Anxiety and depression Arthritis Diabetes Fatty liver Fibromyalgia Hemorrhoids Hyperlipidemia Hypertension Irritable bowel syndrome with alternating bowel habits Left hand fracture Pancreatitis Pneumonia Pyloric ulcer associated with Helicobacter pylori Surgical History Surgical History H/O hand surgery History of cervical spinal surgery Hx of hemorrhoidectomy 04/27/22 S/P bilateral foot surgery Family History Family History Father Hypertension Mother Diabetes mellitus Social History Social History Smoking packs per day: 1 Smoking cigarettes per day: 20.0 Years smoked: 20 Smoking pack-years: 20.00 Smoking status: Current every day smoker Tobacco type: cigarettes Additional smoking assessment comments: Black and Mild cigars. Alcohol intake: never Substance use: never Substance use type: does not use Living arrangements: alone Gender identity (if verbalized by the patient): Female Spiritual care concerns: No Exam Narrative: GENERAL: Well-developed, well-nourished, and in no acute distress. HEAD: Normocephalic, atraumatic. EYES: PERRLA and EOMI. ENT: Nares clear, no rhinorrhea or epistaxis. Mucous membranes moist. Oropharynx without tonsillar hypertrophy exudate or other lesions. NECK: Supple. No a
[2022-05-22 17:46] VITALS: BP 179/98; PULSE 89; RESP 18; O2SAT 99
== END 2022-05-22 17:47 | disposition home or self-care (01) ==
PROVIDERS: Emergency Medicine; Emergency Provider Preventive Medicine Aerospace Medicine; PCP Family Medicine
DX: K29.70 Gastritis, unspecified, without bleeding (principal); E11.9 Type 2 diabetes mellitus without complications; I10 Essential (primary) hypertension; E78.5 Hyperlipidemia, unspecified; K58.2 Mixed irritable bowel syndrome; M79.7 Fibromyalgia; F41.9 Anxiety disorder, unspecified; F32.A Depression, unspecified; Z87.01 Personal history of pneumonia (recurrent); F17.210 Nicotine dependence, cigarettes, uncomplicated; F17.290 Nicotine dependence, other tobacco product, uncomplicated; Z79.4 Long term (current) use of insulin; Z79.84 Long term (current) use of oral hypoglycemic drugs; N83.202 Unspecified ovarian cyst, left side; N83.201 Unspecified ovarian cyst, right side
CPT/HCPCS: 36415; 74177; 80053; 81003; 81025; 83690; 85025; 96365; 96375; 99284; A9270; J0131; J7120; Q9967

== ENCOUNTER 2022-07-29 01:04 | Day surgery (SDC) | payer BC, SELFPAY ==
[2022-07-18 11:13] VITALS: BMI 29.3
--- NOTE | 2022-07-29 10:03 | WPDANESEPPF ---
Anes - Initial Pre Proc Eval Procedure: Operation Date: 07/29/22 10:45 Proposed Procedures p Colonoscopy - Sonny Pennington MD s [facility] Hemorrhoid Treatment - Sonny Pennington MD Date/Time: 07/29/22 10:03 Surgeon: Sonny Pennington MD Pre Op Diagnosis: Rectal bleed Patient Data Age: 42 Gender: F Height: 1.7 m Weight: 85 kg Allergies Allergy/AdvReac Type Severity Reaction Status Date / Time azithromycin Allergy Mild Hives Verified 07/18/22 11:10 codeine Allergy Mild Swelling Verified 07/18/22 11:10 of Lip/Tongue/Throat hydrocodone Allergy Mild Hives Verified 07/18/22 11:10 hydromorphone Allergy Mild Hives Verified 07/18/22 11:10 levofloxacin Allergy Mild rash/itchin Verified 07/18/22 11:10 g meperidine Allergy Mild Hives Verified 07/18/22 11:10 citalopram Allergy Hives Verified 07/18/22 11:10 latex Allergy Hives Verified 07/18/22 11:10 Home Medications Medication Instructions Recorded Confirmed Type albuterol sulfate 90 mcg/actuation 2 puff inhalation QID PRN 09/27/20 07/18/22 Rx aerosol inhaler (ProAir HFA) shortness of breath or wheezing #6.7 grams insulin detemir U-100 100 unit/mL 60 unit subcut QHS 01/18/22 07/18/22 History (3 mL) subcutaneous pen (Levemir FlexTouch U-100 Insulin) valsartan 320 mg tablet 320 mg PO DAILY 01/18/22 07/18/22 History atorvastatin 80 mg tablet 80 mg PO HS 02/08/22 07/18/22 History ergocalciferol (vitamin D2) 1,250 1,250 mcg PO WEEKLY 02/08/22 07/18/22 History mcg (50,000 unit) capsule hydroxyzine HCl 25 mg tablet 25 mg PO BID PRN Itching 03/08/22 07/18/22 History oxycodone 10 mg tablet 10 mg PO Q6H PRN Pain 04/05/22 07/18/22 History quetiapine 100 mg tablet 200 mg PO QHS 04/05/22 07/18/22 History diazepam 5 mg tablet 5 mg PO BID PRN Anxiety 04/19/22 07/18/22 History famotidine 20 mg tablet 20 mg PO DAILY #60 tabs 05/22/22 07/18/22 Rx amitriptyline 25 mg tablet 25 mg PO QHS 1 month #30 tabs 06/02/22 07/18/22 Rx omeprazole 40 mg capsule,delayed 40 mg PO BID 3 months #180 caps 07/04/22 07/18/22 Rx release carvedilol 12.5 mg tablet (Coreg) 12.5 mg PO BID 07/18/22 07/18/22 History linaclotide 72 mcg capsule 72 mcg PO DAILY 07/29/22 07/29/22 History (Linzess) ondansetron HCl 4 mg tablet 4 mg PO Q8H nausea 07/29/22 07/29/22 History Patient hx anesthesia problems: none Family hx anesthesia problems: none Results Review: All pre-operative results and documents have been reviewed as part of the pre-operative evaluation. [facility] Past Medical History Medical History Anxiety and depression Arthritis Diabetes Fatty liver Fibromyalgia Hemorrhoids Hyperlipidemia Hypertension Irritable bowel syndrome with alternating bowel habits Left hand fracture Pancreatitis Pneumonia Pyloric ulcer associated with Helicobacter pylori Surgical History Surgical History H/O hand surgery History of cervical spinal surgery Hx of hemorrhoidectomy 04/27/2022 - Rubber-band ligation internal hemorrhoids, excision single column internal and external hemorrhoid right anterior location S/P bilateral foot surgery Family History Family History Father Hypertension Mother Diabetes mellitus Social History Social History Smoking packs per day: 1 Smoking cigarettes per day: 20.0 Years smoked: 20 Smoking pack-years: 20.00 Smoking status: Current every day smoker Tobacco type: cigarettes Additional smoking assessment comments: Black and Mild cigars. Alcohol intake: never Substance use: never Substance use type: does not use Living arrangements: with family Gender identity (if verbalized by the patient): Female Spiritual care concerns: No Anes - Eval Final PreProcedure Day
[2022-07-29] MEDS: LACTATED RINGERS 1,000 ML 150 ML IV CONT (10:13)
[2022-07-29 10:14] VITALS: BP 114/67; PULSE 83; RESP 20; TEMP 36.4; O2SAT 100; BMI 27.3
[2022-07-29 10:14] LABS: Glucose Point of Care 235 mg/dl (65-105)
--- NOTE | 2022-07-29 10:23 | PM.HPGS ---
History of Present Illness History of Present Illness Consent: Risks, benefits, and alternatives have been discussed and questions answered. Patient agrees to proceed with procedure. Chief complaint: Rectal bleed Narrative: Marley Han is a 42 year old female with ibs- constipation, had rectal bleeding and had hemorrhoidectomy- that is better. Last colonoscopy in 2007 Review of Systems Constitutional: Constitutional: Denies headache(s) and Denies weakness Eyes: Eyes: Denies blurry vision ENT: Reports Normal hearing present, Denies headache(s) and Denies neck pain Cardiovascular: Cardiovascular: Denies chest pain and Denies dyspnea Respiratory: Respiratory: Denies dyspnea Gastrointestinal: Gastrointestinal: Reports no additional gastrointestinal complaints Genitourinary: Genitourinary: Denies dysuria Musculoskeletal: Musculoskeletal: Denies neck pain Integumentary/Breasts: Skin/Breast: Denies dry skin Neurologic: Reports Normal hearing present, Denies headache(s) and Denies weakness Psychiatric: Psychiatric: Denies anxiety Endocrine: Endocrine: Denies change in body appearance Hematologic/Lymphatic: Hematologic/Lymphatic: Denies easy bleeding Allergic/Immunologic: Allergic/Immunologic: Denies urticaria PMFSH Past Medical History Medical History Anxiety and depression Arthritis Diabetes Fatty liver Fibromyalgia Hemorrhoids Hyperlipidemia Hypertension Irritable bowel syndrome with alternating bowel habits Left hand fracture Pancreatitis Pneumonia Pyloric ulcer associated with Helicobacter pylori Surgical History Surgical History H/O hand surgery History of cervical spinal surgery Hx of hemorrhoidectomy 04/27/2022 - Rubber-band ligation internal hemorrhoids, excision single column internal and external hemorrhoid right anterior location S/P bilateral foot surgery Family History Family History Father Hypertension Mother Diabetes mellitus Social History Social History Smoking packs per day: 1 Smoking cigarettes per day: 20.0 Years smoked: 20 Smoking pack-years: 20.00 Smoking status: Current every day smoker Tobacco type: cigarettes Additional smoking assessment comments: Black and Mild cigars. Alcohol intake: never Substance use: never Substance use type: does not use Living arrangements: with family Gender identity (if verbalized by the patient): Female Spiritual care concerns: No Meds Home Medications and Allergies Home Medications Medication Instructions Recorded Confirmed Type albuterol sulfate 90 mcg/actuation 2 puff inhalation QID PRN 09/27/20 07/18/22 Rx aerosol inhaler (ProAir HFA) shortness of breath or wheezing #6.7 grams insulin detemir U-100 100 unit/mL 60 unit subcut QHS 01/18/22 07/18/22 History (3 mL) subcutaneous pen (Levemir FlexTouch U-100 Insulin) valsartan 320 mg tablet 320 mg PO DAILY 01/18/22 07/18/22 History atorvastatin 80 mg tablet 80 mg PO HS 02/08/22 07/18/22 History ergocalciferol (vitamin D2) 1,250 1,250 mcg PO WEEKLY 02/08/22 07/18/22 History mcg (50,000 unit) capsule hydroxyzine HCl 25 mg tablet 25 mg PO BID PRN Itching 03/08/22 07/18/22 History oxycodone 10 mg tablet 10 mg PO Q6H PRN Pain 04/05/22 07/18/22 History quetiapine 100 mg tablet 200 mg PO QHS 04/05/22 07/18/22 History diazepam 5 mg tablet 5 mg PO BID PRN Anxiety 04/19/22 07/18/22 History famotidine 20 mg tablet 20 mg PO DAILY #60 tabs 05/22/22 07/18/22 Rx amitriptyline 25 mg tablet 25 mg PO QHS 1 month #30 tabs 06/02/22 07/18/22 Rx omeprazole 40 mg capsule,delayed 40 mg PO BID 3 months #180 caps 07/04/22 07/18/22 Rx release carvedilol 12.5 mg tablet (Coreg) 12.5 mg PO BID 07/18/22 07/18/22 History linaclotide 72 mcg
[2022-07-29 10:41] VITALS: BP 95/58; PULSE 83; RESP 25; O2SAT 100
--- NOTE | 2022-07-29 10:42 | W.PM.PROC2 ---
Procedure Note - Detailed Date of Procedure 07/29/22 Pre-op Diagnosis Rectal bleed Post-op Diagnosis Same Procedure Performed irc on internal hemorrhoids Surgeon Sonny Pennington MD Anesthesia MAC (also had colonoscopy) Findings small internal hemorrhoids Description of Procedure no fissure, found small posterior internal hemorrhoids with anoscope, then introduced IRC probe and treated at 1.5seconds x5
[2022-07-29 10:51] VITALS: BP 103/56; PULSE 91; RESP 20; O2SAT 100
[2022-07-29 10:58] LABS: Glucose Point of Care 215 mg/dl (65-105)
[2022-07-29 11:01] VITALS: BP 105/62; PULSE 80; RESP 21; O2SAT 100
== END 2022-07-29 11:06 | disposition home or self-care (01) ==
PROVIDERS: PCP Family Medicine; Visit Provider Internal Medicine Gastroenterology
PROC: 0DJD8ZZ Inspection of Lower Intestinal Tract, Via Natural or Artificial Opening Endoscopic (ICD-10-PCS; CPT 45378; principal; 2022-07-29 10:45)
PROC: (CPT 46930; 2022-07-29 10:45)
DX: K59.00 Constipation, unspecified (principal); K92.1 Melena; K64.8 Other hemorrhoids; I10 Essential (primary) hypertension; E78.5 Hyperlipidemia, unspecified; E11.9 Type 2 diabetes mellitus without complications; F41.8 Other specified anxiety disorders; M79.7 Fibromyalgia; K76.0 Fatty (change of) liver, not elsewhere classified; F17.210 Nicotine dependence, cigarettes, uncomplicated; F17.290 Nicotine dependence, other tobacco product, uncomplicated; E66.9 Obesity, unspecified; Z68.27 Body mass index [BMI] 27.0-27.9, adult; Z79.51 Long term (current) use of inhaled steroids; Z79.4 Long term (current) use of insulin
CPT/HCPCS: 45378; 46930; 82948; J2704; J7120